=== PATIENT | female | born 1980 | race Caucasian/White ===

== ENCOUNTER 2024-01-30 16:00 | Inpatient (IN) | payer OTHER, SELFPAY ==
[2024-01-30] VITALS (9 sets, daily range): BP systolic 72–121; BP diastolic 48–72; PULSE 95–134; RESP 12–20; TEMP 36.6–37; O2SAT 98–99; BMI 29.5
--- NOTE | ~2024-01-30 | CT_ITS ---
EXAMINATION: CT ABDOMEN AND PELVIS WITHOUT CONTRAST CLINICAL INFORMATION: Sepsis. Abnormal UA. Left CVA tenderness. COMPARISON: None available. TECHNIQUE: Multidetector volumetric imaging was performed from the superior aspect of the liver through the pubic symphysis. Sagittal and coronal reformatted images were obtained on the technologist's workstation. This CT examination was performed using dose optimization techniques as appropriate, variously including the following: *Automated exposure control *Adjustment of mA and/or kV according to patient size (this includes techniques or standardized protocols for targeted exams where dose is matched to indication/reason for exam; i.e. extremities or head) *Use of iterative reconstruction technique DLP: 588 mGy-cm FINDINGS: LUNG BASES: The lung bases appear clear, with no evidence of inflammation or nodules. LIVER, GALLBLADDER, AND BILIARY TREE: The liver measures 18.8 cm in sagittal dimension. It appears unremarkable in shape and attenuation. No focal hepatic lesion or biliary ductal dilatation is appreciated. Status post cholecystectomy. PANCREAS: Unremarkable SPLEEN: Measures 16.7 cm in sagittal dimension. No focal splenic lesion identified. ADRENAL GLANDS: Unremarkable KIDNEYS AND URETERS: Right kidney not visualized, suggesting prior surgical removal. Question mild left perinephric stranding. The left kidney otherwise appears unremarkable in size, shape, and attenuation. No hydronephrosis, hydroureter, or calculi seen. BLADDER: Poorly distended, therefore suboptimally evaluated. Grossly unremarkable. GASTROINTESTINAL TRACT: Evidence of sleeve gastrectomy. The small and large bowel appear unremarkable. ABDOMINAL WALL: No significant hernia is appreciated. LYMPH NODES: No evidence of adenopathy by size criteria. VASCULAR: Unremarkable PELVIC VISCERA: Unremarkable OSSEOUS STRUCTURES: Unremarkable CT/CT abdomen pelvis wo IV con IMPRESSION: Status post right nephrectomy. Question mild left perinephric stranding, nonspecific. Noncontrast CT scan is insensitive and nonspecific for the detection of pyelonephritis. Recommend clinical correlation. Splenomegaly. Borderline mild hepatomegaly. Additional findings, as above. Electronically signed by: Rafa Maher MD 01/30/2024 08:46 PM EST
--- NOTE | ~2024-01-30 | XR_ITS ---
EXAMINATION: XR CHEST CLINICAL INFORMATION: cough, sob COMPARISON: None available. TECHNIQUE: 2 views of the chest were obtained. FINDINGS: No significant abnormality is noted involving the heart, lungs, mediastinum, bony thorax or soft tissues. XR/XR chest 2V IMPRESSION: Unremarkable examination. Electronically signed by: Saman Patel MD 01/30/2024 04:47 PM [facility]
--- NOTE | ~2024-01-30 | US_ITS ---
EXAMINATION: US ABDOMEN LIMITED CLINICAL INFORMATION: Right upper quadrant elevated LFTs. COMPARISON: CT abdomen and pelvis on 01/30/2024 TECHNIQUE: Real-time imaging of the right upper quadrant abdominal viscera. FINDINGS: PANCREAS: Visualized portions are unremarkable. LIVER: The liver is normal in size. The liver contour is normal. Parenchymal echogenicity is normal. No focal hepatic lesion. There is no intrahepatic biliary duct dilatation seen. GALLBLADDER: Surgically absent. COMMON BILE DUCT: Normal in caliber measuring 0.7 cm in diameter. RIGHT KIDNEY: Surgically absent. FREE FLUID: None. US/US abdomen limited IMPRESSION: Unremarkable right upper quadrant ultrasound. Electronically signed by: Kelly Sam MD 01/31/2024 09:33 AM EST
--- NOTE | 2024-01-30 16:08 | ECG_ITS ---
Test Reason : tachy Blood Pressure : / mmHG Vent. Rate : 131 BPM Atrial Rate : 131 BPM P-R Int : 114 ms QRS Dur : 078 ms QT Int : 290 ms P-R-T Axes : 018 -05 019 degrees QTc Int : 428 ms Sinus tachycardia Otherwise normal ECG No previous ECGs available Referred By: Generic ED Physician Electronically Signed By:Danny Pham
--- NOTE | 2024-01-30 16:18 | ED_ITS ---
HPI - Nausea/Vomiting/Diarrhea General Chief complaint: Nausea/Vomiting/Diarrhea Stated complaint: fever,vomiting,body aches Time Seen by Provider: 01/30/24 18:23 History of Present Illness ED Provider: Saundra CERVANTES Narrative: The patient is a 43-year-old woman with a history of renal cell carcinoma and a right nephrectomy. She has received most of her recent care through [facility] and [facility]. She says that she has not felt very well for the last 4 or 5 days. She has had body aches and chills. She has had some left-sided flank or abdominal pain. She spoke to her doctor about these symptoms a couple of days ago and was told she probably had a viral syndrome. However symptoms have worsened over the last couple of days. She has had nausea and vomiting and left-sided flank pain. No definite urinary discomfort. She has had a bit of a cough. Possibly some mild shortness of breath. Related Data Allergies Allergy/AdvReac Type Severity Reaction Status Date / Time erythromycin base Allergy Unknown HIVES Verified 01/30/24 16:06 [ERYTHROMYCIN BASE] metronidazole [From FLAGYL] Allergy Unknown ANAPHYLAXIS Verified 01/30/24 16:06 ofloxacin [From FLOXIN] Allergy Unknown ANAPHYLAXIS Verified 01/30/24 16:06 Penicillins [PENICILLINS] Allergy Unknown HIVES Verified 01/30/24 16:06 vancomycin [VANCOMYCIN] Allergy Unknown HIVES Verified 01/30/24 16:06 Iodinated Contrast Media Allergy Hives Verified 01/30/24 16:06 [Contrast Dye] morphine Allergy Vomiting Verified 01/30/24 16:06 Review of Systems 2 Review of Systems: Yes all other systems are reviewed and are negative [facility], [facility] Past Medical History Medical History (Updated 01/30/24 @ 23:13 by Lenora Hernández PA-C) Renal cell carcinoma of right kidney Urticaria Hypothyroid Diabetes type 2, controlled Surgical History (Updated 01/30/24 @ 23:17 by Lenora Hernández PA-C) History of cholecystectomy H/O gastric sleeve H/O right nephrectomy Social History Social History Smoked in Last 30 Days: No Use of substances other than those prescribed or required for medical reasons: No Advance Directives: No Advance Directives Information Provided: No Do you have a plan to hurt others: No Plan Patient : No Physical Exam 2 Vital Signs: Vital Signs: Last Vital Signs Temp 98.2 F 01/30/24 21:43 Pulse 98 01/30/24 23:27 Resp 20 01/30/24 23:39 BP 108/59 L 01/30/24 23:27 Pulse Ox 98 01/30/24 21:43 O2 Del Method Room Air 01/30/24 21:43 BMI result Body Mass Index 29.5 Const: Other: The patient is a 43-year-old woman who was awake and alert. She looked somewhat unwell. She did not seem in any respiratory difficulty. She did not appear obviously uncomfortable. HEENT: Other: Face is symmetrical. Mucous membranes moist. Eyes: Other: Pupils are round equal, conjunctivae clear Neck: Neck: Yes full ROM, Yes no lymphadenopathy and Yes no JVD Resp: Effort & Inspection: normal respiratory effort Auscultation: clear to auscultation bilaterally Cardio: Rate: tachycardic Rhythm: regular rhythm Heart sounds: S1 normal heart sound present and S2 normal heart sound present GI: Other: There was some mild left-sided abdominal tenderness. No right-sided tenderness. Back/Spine/Pelvis: Other: Some mild left-sided CVA percussion tenderness. Skin: Other: Skin is pale and dry Neuro: Other: The patient is awake and alert with a normal mental status. Cranial nerves are intact. She moves her extremities normally and appropriately. Extrem: Other: No calf swelling or tenderness Course Course Course Narrative: This is a rapid medical exam. Deferred additional HPI, ROS, PE to primary provider. 43 yo female with history of DM here with complaints of cough, shortness of breath, vomiting, body aches x several days. Will obtain labs, UA, EKG, CXR, viral testing. MARY Kwon APRN Medications Administered Generic Name Dose Route Start Last Admin Trade Name Freq PRN Reason Stop Dose Admin Hydromorphone HCl 0.5 mg 01/30/24 23:26 01/30/24 23:39 Hydromorphone Hcl 0.5 Mg/0.5 Ml Syringe IVPUSH 0.5 mg Q4H PRN Administration Pain, Moderate(Pain Scale 4-6) Protocol Lactated Ringer's 1,000 mls @ 125 mls/hr 01/30/24 22:45 01/30/24 23:41 Lr IVCONT 125 mls/hr .Q8H NASREEN Administration Pantoprazole Sodium 40 mg 01/30/24 22:45 01/30/24 23:39 Pantoprazole Sodium 40 Mg/10 Ml Vial IVPUSH 40 mg BID@0630,1630 NASREEN Administration Sodium Chloride 3 ml 01/31/24 00:00 01/31/24 00:39 0.9 % Sodium Chloride Flush 3 Ml Syringe IVFLUSH Not Given QSHIFT NASREEN Discontinued Medications Generic Name Dose Route Start Last Admin Trade Name Frecatrachita PRN Reason Stop Dose Admin Sodium Chloride 1,000 mls @ 999 mls/hr 01/30/24 16:47 01/30/24 20:36 Ns IV 01/30/24 17:47 Infused .Q1H1M STA Infusion Cefepime HCl 2 gm in 50 mls @ 100 mls/hr 01/30/24 18:38 01/30/24 19:22 Maxipime IV 01/30/24 19:07 Infused ONCE ONE Infusion Sodium Chloride 2,340.54 mls @ 2,340.54 mls/hr 01/30/24 18:40 01/30/24 23:00 Ns 30 ml/kg infuse over 1 hr (2340.54 ml) 01/30/24 19:39 Infused IV Infusion .Q1H STA Ondansetron HCl 4 mg 01/30/24 16:47 01/30/24 16:58 Ondansetron Hcl 4 Mg/2 Ml Vial IVPUSH 01/30/24 16:48 4 mg ONCE ONE Administration Medical Decision Making Medical Decision Making [facility] Narrative: The patient is a 43-year-old woman with a history of a right nephrectomy because of renal cell carcinoma. She has not had any recent cancer treatments. She undergoes screening but has had no recurrence of the cancer so far. She presents with a 4 or 5 days of illness that began with body aches in his sense of fever. She has also had a cough and nausea and vomiting. On exam she has some left-sided CVA percussion tenderness. The patient had a lactate that was elevated at 2.8. She does not have a fever but she was quite tachycardic and somewhat hypotensive. She looks somewhat unwell. There were no signs of any respiratory distress. The patient was given aggressive IV fluids and empiric cefepime. She is allergic to vancomycin. My initial impression was that she was possibly septic. The patient has a white count is normal but she has a left shift. Her urinalysis shows positive nitrates, positive leukocyte esterase and bacteria although not many white cells. She has some left-sided CVA percussion tenderness. Chest x-ray was negative for pneumonia. The patient seemed to feel remarkably better and look remarkably better after IV fluids and ondansetron. The patient has tachycardia resolved and her blood pressure improved. Blood testing showed an acute kidney injury with a creatinine of 2.6 and a BUN of 39. Estimated GFR 20. She had a carbon dioxide of 16 on her metabolic panel. She had abnormal LFTs which I suspect may represent hypoperfusion. Noncontrast CT scan of the abdomen was pelvis was done to address her left-sided pain and left-sided CVA percussion tenderness. There is questionable finding of perinephric stranding of the left kidney which is nonspecific but can be seen in pyelonephritis. Repeat lactate was 1.8. Patient was feeling considerably better. She will be admitted to the hospitalist service with a presumptive diagnosis of pyelonephritis. The patient had excellent oxygen saturations on room air. At no point did she seem in respiratory distress or tachypneic. Lab Data 01/30/24 16:22 01/30/24 16:22 Labs: Lab Results 01/30/24 01/30/24 01/30/24 Range/Units 16:22 17:05 17:30 WBC 6.2 (4.8-10.8) X10*3/uL RBC 4.06 L (4.20-5.50) X10*6/uL Hgb 12.3 (12.0-16.0) g/dl Hct 32.8 L (37.0-47.0) % MCV 80.8 (80.0-98.0) fL MCH 30.3 (27.0-33.0) pg MCHC 37.5 H (31.0-35.0) g/dl RDW 12.3 (11.0-16.0) % Plt Count 71 L (160-400) X10*3/uL MPV 11.1 (9.4-12.3) fL Immature Gran % (Auto) 0.6 H (0.0-0.4) % Neut % (Auto) 89.4 H (45-73) % Lymph % (Auto) 6.3 L (20-40) % Towns % (Auto) 3.2 (2-11) % Eos % (Auto) 0.2 (0-4) % Baso % (Auto) 0.3 (0-2) % Lymph # (Auto) 0.4 L (1.2-4.9) X10*3/uL Towns # (Auto) 0.2 (0.1-1.2) X10*3/uL Eos # (Auto) 0.0 (0.0-0.4) X10*3/uL Baso # (Auto) 0.0 (0.0-0.2) X10*3/uL Abs Immat Gran (auto) 0.04 H (0.00-0.03) X10*3/uL Absolute Neuts (auto) 5.5 (2.0-8.3) x10*3/uL Absolute Nucleated RBC 0.000 (0.0-0.012) X10*3/uL Nucleated RBC % (auto) 0.0 (0.0-0.2) /100WBC Sodium 133 L (135-145) mmol/L Potassium 3.6 (3.3-5.1) mmol/L Chloride 104 (96-108) mmol/L Carbon Dioxide 16 L (22-29) mmol/L Anion Gap 17 (12-20) BUN 39 H (9-16) mg/dL Creatinine 2.60 H (0.5-1.4) mg/dL Estim Creat Clear Calc 27.9 Estimated GFR 20 POC Glucose 204 H (60-115) mg/dL Random Glucose 232 H (60-115) mg/dL Lactic Acid (0.5-2.0) mmol/L Lactic Acid F/U @ 2Hr (0.5-2.0) mmol/L Calcium 8.8 (8.4-10.2) mg/dL Total Bilirubin 2.7 H (0.0-1.0) mg/dL Direct Bilirubin 1.5 H (0.0-0.5) mg/dL AST 44 H (5-31) U/L ALT 35 H (0-31) U/L Alkaline Phosphatase 188 H (39-117) U/L Total Protein 6.7 (6.5-8.0) g/dL Albumin 3.3 L (3.5-5.0) g/dL Lipase 16 (8-78) U/L Urine Color Dark Yellow Urine Appearance Cloudy Urine pH 5.5 (5.0-9.0) Ur Specific [place] 1.020 (1.005-1.025) Urine Protein 100 (2+) H (Neg-Trace) mg/dL Urine Glucose (UA) Negative (Negative) mg/dL Urine Ketones Trace (Negative) mg/dL Urine Blood Large (3+) H (Negative) Urine Nitrite Positive H (Negative) Ur Leukocyte Esterase Moderate (2+) H (Negative) Urine RBC 0-2 (0-2) /HPF Urine WBC 11-20 (0-5) /HPF Ur Squamous Epith Cells 11-20 (0-2) /HPF Urine Bacteria 4+ (None Seen) Hyaline Casts 6-10 (0-2) /LPF Urine Test NEGATIVE (NEGATIVE) Influenza Type A (PCR) NEGATIVE (Negative) Influenza Type B (PCR) NEGATIVE (Negative) RSV RNA Qual (PCR) NEGATIVE (Negative) SARS-CoV-2 RNA (RT-PCR) NEGATIVE (Negative) 01/30/24 01/30/24 Range/Units 17:35 20:24 WBC (4.8-10.8) X10*3/uL RBC (4.20-5.50) X10*6/uL Hgb (12.0-16.0) g/dl Hct (37.0-47.0) % MCV (80.0-98.0) fL MCH (27.0-33.0) pg MCHC (31.0-35.0) g/dl RDW (11.0-16.0) % Plt Count (160-400) X10*3/uL MPV (9.4-12.3) fL Immature Gran % (Auto) (0.0-0.4) % Neut % (Auto) (45-73) % Lymph % (Auto) (20-40) % Towns % (Auto) (2-11) % Eos % (Auto) (0-4) % Baso % (Auto) (0-2) % Lymph # (Auto) (1.2-4.9) X10*3/uL Towns # (Auto) (0.1-1.2) X10*3/uL Eos # (Auto) (0.0-0.4) X10*3/uL Baso # (Auto) (0.0-0.2) X10*3/uL Abs Immat Gran (auto) (0.00-0.03) X10*3/uL Absolute Neuts (auto) (2.0-8.3) x10*3/uL Absolute Nucleated RBC (0.0-0.012) X10*3/uL Nucleated RBC % (auto) (0.0-0.2) /100WBC Sodium (135-145) mmol/L Potassium (3.3-5.1) mmol/L Chloride (96-108) mmol/L Carbon Dioxide (22-29) mmol/L Anion Gap (12-20) BUN (9-16) mg/dL Creatinine (0.5-1.4) mg/dL Estim Creat Clear Calc Estimated GFR POC Glucose (60-115) mg/dL Random Glucose (60-115) mg/dL Lactic Acid 2.8 H* (0.5-2.0) mmol/L Lactic Acid F/U @ 2Hr 1.8 (0.5-2.0) mmol/L Calcium (8.4-10.2) mg/dL Total Bilirubin (0.0-1.0) mg/dL Direct Bilirubin (0.0-0.5) mg/dL AST (5-31) U/L ALT (0-31) U/L Alkaline Phosphatase (39-117) U/L Total Protein (6.5-8.0) g/dL Albumin (3.5-5.0) g/dL Lipase (8-78) U/L Urine Color Urine Appearance Urine pH (5.0-9.0) Ur Specific [place] (1.005-1.025) Urine Protein (Neg-Trace) mg/dL Urine Glucose (UA) (Negative) mg/dL Urine Ketones (Negative) mg/dL Urine Blood (Negative) Urine Nitrite (Negative) Ur Leukocyte Esterase (Negative) Urine RBC (0-2) /HPF Urine WBC (0-5) /HPF Ur Squamous Epith Cells (0-2) /HPF Urine Bacteria (None Seen) Hyaline Casts (0-2) /LPF Urine Test (NEGATIVE) Influenza Type A (PCR) (Negative) Influenza Type B (PCR) (Negative) RSV RNA Qual (PCR) (Negative) SARS-CoV-2 RNA (RT-PCR) (Negative) Critical Care Time Critical Care Time Critical Care Time: Yes Total Critical Care Time: 35 Attestation: The patient was critically ill with a high probability of imminent or life- threatening deterioration. ?I spent greater than 30 minutes of discontinuous time evaluating the patient, delivering critical care at the bedside, discussing evaluating data with consultants. ?Critical care time does not include time spent performing separately billable procedures or teaching. ?Time spent performing critical care with 35 minutes. Discharge Plan Discharge Clinical Impression: Pyelonephritis of left kidney, Acute kidney injury Patient Disposition: Admitted As Inpatient
[2024-01-30 16:26] LABS: MANUAL DIFF FLAG NO
[2024-01-30 16:36] LABS: Basophils Percent Auto 0.3 % (0-2); Eosinophils Percent Auto 0.2 % (0-4); Hematocrit 32.8 % (37.0-47.0); Hemoglobin 12.3 g/dl (12.0-16.0); Imm Gran Abs Auto 0.04 X10*3/uL (0.00-0.03); Imm Gran Pct Auto 0.6 % (0.0-0.4); Lymphocytes Absolute Auto 0.4 X10*3/uL (1.2-4.9); Lymphocytes Percent Auto 6.3 % (20-40); Mean Corpuscular HGB Conc 37.5 g/dl (31.0-35.0); Mean Corpuscular Hemoglobin 30.3 pg (27.0-33.0); Mean Corpuscular Volume 80.8 fL (80.0-98.0); Monocytes Absolute Auto 0.2 X10*3/uL (0.1-1.2); Monocytes Percent Auto 3.2 % (2-11); Neutrophils Absolute Auto 5.5 x10*3/uL (2.0-8.3); Neutrophils Percent Auto 89.4 % (45-73); Red Blood Count 4.06 X10*6/uL (4.20-5.50); Red Cell Distribution Width 12.3 % (11.0-16.0); White Blood Count 6.2 X10*3/uL (4.8-10.8)
[2024-01-30 16:51] LABS: Albumin Level 3.3 g/dL (3.5-5.0); Anion Gap 17 (12-20); Aspartate Amino Transferase 44 U/L (5-31); Bilirubin Direct 1.5 mg/dL (0.0-0.5); Bilirubin Total 2.7 mg/dL (0.0-1.0); Blood Urea Nitrogen 39 mg/dL (9-16); Calcium 8.8 mg/dL (8.4-10.2); Carbon Dioxide 16 mmol/L (22-29); Chloride 104 mmol/L (96-108); Creatinine Clr Calc Pharmacy 27.9; Estimated Glomerular Filt Rate 20; Glucose Random 232 mg/dL (60-115); Lipase 16 U/L (8-78); Potassium 3.6 mmol/L (3.3-5.1); Sodium 133 mmol/L (135-145); Total Protein 6.7 g/dL (6.5-8.0)
[2024-01-30 16:55] LABS: Mean Platelet Volume 11.1 fL (9.4-12.3); Platelet Count 71 X10*3/uL (160-400)
[2024-01-30] MEDS: ondansetron HCL 4 MG/2 ML VIAL IVPUSH (16:58)
[2024-01-30] MEDS: 0.9 % Sodium Chloride 1,000 ML 999 ML IV (16:59)
[2024-01-30 17:06] LABS: Alanine Aminotransferase 35 U/L (0-31); Alkaline Phosphatase 188 U/L (39-117)
[2024-01-30 17:07] LABS: Influenza A PCR NEGATIVE (Negative); Influenza B PCR NEGATIVE (Negative); Resp Syncy Virus RNA Qual PCR NEGATIVE (Negative); SARS COV2 PCR INHOUSE NEGATIVE (Negative)
[2024-01-30 17:10] LABS: Glucose, Whole Blood 204 mg/dL (60-115)
[2024-01-30 17:48] LABS: Appearance Urine Cloudy; Color Urine Dark Yellow; Glucose Urine UA Negative (Negative); Leukocyte Esterase Urine Moderate (2+) (Negative); Nitrite Urine Positive (Negative); PH 5.5 (5.0-9.0); UMIC TRIGGER UACC YES; Urine Blood Large (3+) (Negative); Urine Ketones Trace mg/dL (Negative); Urine Protein 100 (2+) mg/dL (Neg-Trace)
[2024-01-30 17:50] LABS: UPreg QC Valid YES; Urine Pregnancy NEGATIVE (NEGATIVE)
[2024-01-30 18:00] LABS: Bacteria Urine 4+ (None Seen); RBC Urine 0-2 /HPF (0-2); UACC Culture Trigger YES
--- NOTE | 2024-01-30 18:03 | PC.NURSE ---
right IV site infiltrated after 20 minutes of infusing IV fluid, arm above the site is painful and swollen, ice applied.
[2024-01-30 18:14] LABS: Lactic Acid 2.8 mmol/L (0.5-2.0)
[2024-01-30] MEDS: cefEPime HCl/D5W 2 GM/50 ML PIGGYBACK IV (18:51)
[2024-01-30] MEDS: SODIUM CHLORIDE 2340.54 ML IV (19:16)
--- NOTE | 2024-01-30 19:17 | PC.NURSE ---
this RN assumed care of pt, pt a&ox4, respirations even and unlabored. Sepsis alert called on pt per provider, pt noted to be sinuc tach 15-117bpm. pt denies pain. IV sepsis fluids administered per apr. vss.
[2024-01-30 19:44] LABS: Reflex Lactate? Lactic Acid Added
--- NOTE | 2024-01-30 19:45 | PC.NURSE ---
pt was asking about prev labs values. Pt pulled the following up from her phone. CR 1.1 BUN 15 B/C ratio 13.6 all reported on 01/13/24. provider Gamaliel made aware.
--- NOTE | 2024-01-30 20:35 | PC.NURSE ---
pt reports her nausea has decreased at this time, per provider pt okayed to have sandwich. Iv fluids continuing to administer.
[2024-01-30 20:42] LABS: ~Lactic Acid-LAB USE ONLY 1.8 mmol/L (0.5-2.0)
--- NOTE | 2024-01-30 22:54 | P.HPHOSP_ITS ---
History of Present Illness Date of Service: 01/30/24 Attending physician on admission: Chary Sawyer Chief Complaint: L flank pain Patient is a 43-year-old female with a past medical history significant for renal cell carcinoma status post right nephrectomy, type 2 diabetes, hypothyroid and chronic urticaria, who presented to the ED with 5 days of chills, aches, left flank pain, nausea and vomiting. She denies any dysuria, urinary frequency or urinary symptoms. She reports a possible temp of 95 degrees at home, normal here. She also complains of a cough with shortness of breath. No nasal congestion or sore throat. 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 She has been taking ibuprofen 800 mg for her flank pain. No hematemesis or hematuria. Review of Systems 2 Constitutional: Constitutional: Reports chills, Denies fatigue and Denies headache(s) Eyes: Eyes: Denies change in vision ENT: Denies headache(s), Denies nasal congestion, Denies nasal discharge and Denies sore throat Cardiovascular: Cardiovascular: Denies chest pain, Denies syncope, Denies rapid heart rate, Denies leg edema and Reports dyspnea Respiratory: Respiratory: Reports cough, Reports dyspnea and Denies wheezing Gastrointestinal: Gastrointestinal: Denies constipation, Denies diarrhea, Reports nausea and Reports vomiting Genitourinary: Genitourinary: Reports as per HPI Musculoskeletal: Musculoskeletal: Denies numbness and Denies tingling Integumentary/Breasts: Skin/Breast: Denies rash Neurologic: Denies confusion, Denies syncope, Denies headache(s), Denies numbness and Denies tingling Psychiatric: Psychiatric: Denies confusion Endocrine: Endocrine: Denies fatigue Hematologic/Lymphatic: Hematologic/Lymphatic: Denies easy bleeding and Denies easy bruising Allergic/Immunologic: Allergic/Immunologic: Denies wheezing [facility] Medical History (Updated 01/30/24 @ 23:13 by Lenora Hernández PA-C) Renal cell carcinoma of right kidney Urticaria Hypothyroid Diabetes type 2, controlled Functional capacity: independent ambulation Surgical History (Updated 01/30/24 @ 23:17 by Lenora Hernández PA-C) History of cholecystectomy H/O gastric sleeve H/O right nephrectomy Social History Smoked in Last 30 Days: No Use of substances other than those prescribed or required for medical reasons: No Advance Directives: No Advance Directives Information Provided: No Do you have a plan to hurt others: No Plan Patient : No Narrative: social etoh, no drug use, former smoker. Meds Allergies Allergy/AdvReac Type Severity Reaction Status Date / Time erythromycin base Allergy Unknown HIVES Verified 01/30/24 16:06 [ERYTHROMYCIN BASE] metronidazole [From FLAGYL] Allergy Unknown ANAPHYLAXIS Verified 01/30/24 16:06 ofloxacin [From FLOXIN] Allergy Unknown ANAPHYLAXIS Verified 01/30/24 16:06 Penicillins [PENICILLINS] Allergy Unknown HIVES Verified 01/30/24 16:06 vancomycin [VANCOMYCIN] Allergy Unknown HIVES Verified 01/30/24 16:06 Iodinated Contrast Media Allergy Hives Verified 01/30/24 16:06 [Contrast Dye] morphine Allergy Vomiting Verified 01/30/24 16:06 Active Medications: Current Medications Acetaminophen (Acetaminophen 325 Mg Tablet) 650 mg PO Q6H PRN PRN Reason: Pain, Mild (Pain Scale 1-3), fever or headache Calcium Carbonate (Calcium Carbonate 750 Mg Tab.Chew) 750 mg PO Q4H PRN PRN Reason: Heartburn Glucose (Glucose Gel 15 Gm Gel..Gram.) 15 gm PO Q15M PRN; Protocol PRN Reason: per Hypoglycemia Standing Ord. Lactated Ringer's (Lr) 1,000 mls @ 125 mls/hr IVCONT .Q8H [facility] Dextrose (D10) 250 mls @ 750 mls/hr IV Q15M PRN; Protocol PRN Reason: per Hypoglycemia Standing Ord. Cefepime HCl (Maxipime) 2 gm in 50 mls @ 100 mls/hr IV Q24H [facility] Insulin Human Lispro (Insulin Lispro 100 Unit/Ml 3 Ml Vial) 0 unit SUBCUT QIDACHS [facility]; Protocol Magnesium Hydroxide (Milk Of Magnesia 30 Ml Oral.Susp) 30 ml PO DAILY PRN PRN Reason: Constipation Melatonin (Melatonin 3 Mg Tablet) 6 mg PO BEDTIME PRN PRN Reason: Insomnia Ondansetron HCl (Ondansetron Hcl 4 Mg/2 Ml Vial) 4 mg IVPUSH Q8H PRN PRN Reason: Nausea and Vomiting Pantoprazole Sodium (Pantoprazole Sodium 40 Mg/10 Ml Vial) 40 mg IVPUSH BID@0630,1630 [facility] Sodium Chloride (0.9 % Sodium Chloride Flush 3 Ml Syringe) 3 ml IVFLUSH QSHIFT [facility] Physical Exam 2 Vital Signs and Narrative: Vital Signs: Last Vital Signs Temp 98.1 F 01/30/24 20:48 Pulse 102 H 01/30/24 20:48 Resp 15 01/30/24 20:48 BP 113/69 01/30/24 20:48 Pulse Ox 99 01/30/24 20:48 O2 Del Method Room Air 01/30/24 20:48 BMI result Body Mass Index 29.5 General: AOx3, no acute distress Resp: CTA bilaterally CVS: S1, S2, RRR GI: +BS, NT, no distention, L CVA tenderness Skin: Warm, dry Extremities: No LE edema Psych: Appropriate affect sepsis focused exam normal Const: General: No confusion Orientation/consciousness: No confusion Neuro: General: No confusion Results Labs 01/30/24 16:22 01/31/24 00:37 Labs: Laboratory Results - last 24 hr 01/30/24 01/30/24 01/30/24 16:22 17:05 17:30 MCV 80.8 MCH 30.3 MCHC 37.5 H RDW 12.3 Plt Count 71 L MPV 11.1 Immature Gran % (Auto) 0.6 H Neut % (Auto) 89.4 H Lymph % (Auto) 6.3 L [place] % (Auto) 3.2 Eos % (Auto) 0.2 Baso % (Auto) 0.3 Lymph # (Auto) 0.4 L [place] # (Auto) 0.2 Eos # (Auto) 0.0 Baso # (Auto) 0.0 Abs Immat Gran (auto) 0.04 H Absolute Neuts (auto) 5.5 Absolute Nucleated RBC 0.000 Nucleated RBC % (auto) 0.0 Anion Gap 17 Estim Creat Clear Calc 27.9 Estimated GFR 20 POC Glucose 204 H Random Glucose 232 H Lactic Acid Lactic Acid F/U @ 2Hr Calcium 8.8 Total Bilirubin 2.7 H Direct Bilirubin 1.5 H AST 44 H ALT 35 H Alkaline Phosphatase 188 H Total Protein 6.7 Albumin 3.3 L Lipase 16 Urine Color Dark Yellow Urine Appearance Cloudy Urine pH 5.5 Ur Specific [place] 1.020 Urine Protein 100 (2+) H Urine Glucose (UA) Negative Urine Ketones Trace Urine Blood Large (3+) H Urine Nitrite Positive H Ur Leukocyte Esterase Moderate (2+) H Urine RBC 0-2 Urine WBC 11-20 Ur Squamous Epith Cells 11-20 Urine Bacteria 4+ Hyaline Casts 6-10 Urine Test NEGATIVE Influenza Type A (PCR) NEGATIVE Influenza Type B (PCR) NEGATIVE RSV RNA Qual (PCR) NEGATIVE SARS-CoV-2 RNA (RT-PCR) NEGATIVE 01/30/24 01/30/24 17:35 20:24 MCV MCH MCHC RDW Plt Count MPV Immature Gran % (Auto) Neut % (Auto) Lymph % (Auto) [place] % (Auto) Eos % (Auto) Baso % (Auto) Lymph # (Auto) [place] # (Auto) Eos # (Auto) Baso # (Auto) Abs Immat Gran (auto) Absolute Neuts (auto) Absolute Nucleated RBC Nucleated RBC % (auto) Anion Gap Estim Creat Clear Calc Estimated GFR POC Glucose Random Glucose Lactic Acid 2.8 H* Lactic Acid F/U @ 2Hr 1.8 Calcium Total Bilirubin Direct Bilirubin AST ALT Alkaline Phosphatase Total Protein Albumin Lipase Urine Color Urine Appearance Urine pH Ur Specific [place] Urine Protein Urine Glucose (UA) Urine Ketones Urine Blood Urine Nitrite Ur Leukocyte Esterase Urine RBC Urine WBC Ur Squamous Epith Cells Urine Bacteria Hyaline Casts Urine Test Influenza Type A (PCR) Influenza Type B (PCR) RSV RNA Qual (PCR) SARS-CoV-2 RNA (RT-PCR) Imaging Radiologist's Impressions: Impressions Chest X-Ray 01/30/24 16:30 IMPRESSION: Unremarkable examination. Electronically signed by: Saman Patel MD 01/30/2024 04:47 PM EST RP Abdomen/Pelvis CT 01/30/24 19:25 IMPRESSION: Status post right nephrectomy. Question mild left perinephric stranding, nonspecific. Noncontrast CT scan is insensitive and nonspecific for the detection of pyelonephritis. Recommend clinical correlation. Splenomegaly. Borderline mild hepatomegaly. Additional findings, as above. Electronically signed by: Rafa Maher MD 01/30/2024 08:46 PM EST RP Assessment and Plan (1) Sepsis: Status: Acute (2) Pyelonephritis of left kidney: Status: Acute (3) Acute kidney injury: Status: Acute (4) Elevated LFTs: Status: Acute (5) Thrombocytopenia: Status: Acute Plan Patient is a 43-year-old female with a past medical history significant for renal cell carcinoma status post right nephrectomy, type 2 diabetes, hypothyroid and chronic urticaria, who presented to the ED with 5 days of chills, aches, left flank pain, nausea and vomiting. sepsis secondary to pyelonephritis - +bands, no leukocytosis, hypotensive and tachy, lactate normal, blood cultures pending - given sepsis fluid blous in ED, continue LR 125ml/hr - UA +, culture pending - CXR negative - Abd/pelvic CT with perinephric stranding left kidney - started on cefepime in ED, tolerated although PCN allergy, will continue renally dosed and confirmed with pharmacist - start pantoprazole BID to prevent stress ulcer - due to allergies and kidney function hydromorphone added PRN for moderate and severe pain - recheck CMP now - monitor CBC and CMP MERLY -- likely multifactorial with solitary kidney, sepsis, NSAID use, vomiting - creatinine 2.6, baseline 1.1 last month per patient portal @[facility] on her phone - given fluid bolus in ED - LR 125ml/hr - avoid nephrotoxins - counseled pt to avoid ibuprofen - monitor CMP elevated LFTs -- likely due to sepsis - RUQ US - hold mounjaro - monitor CMP thrombocytopenia -- likely due to sepsis - monitor CBC T2DM - SSI - diabetic diet - hold mounjaro hypothyroid - continue levothyroxine chronic urticaria - continue levocetirazine full code VTE prophy: pneumoboots, meds contraindicated due to thrombocytopenia Patient with sepsis secondary to pyelonephritis requiring admission for at least 2 midnights stay for IV antibiotics and monitoring. Quality Stroke Does the patient have a stroke diagnosis?: No VTE Prior VTE?: No VTE Risk Level:: Medical - moderate - high VTE Device Contraindication: N/A - Device Ordered VTE Drug Contraindication: Treatment Not Indicated
[2024-01-30] MEDS: HYDROmorphone HCl 0.5 MG/0.5 ML SYRINGE IVPUSH (23:39)
[2024-01-30] MEDS: Pantoprazole Sodium 40 MG/10 ML VIAL IVPUSH (23:39)
[2024-01-30] MEDS: Lactated Ringers 1,000 ML 125 ML IVCONT (23:41)
--- NOTE | 2024-01-30 23:46 | PC.NURSE ---
pt reporting 6/10 lower back pain, pt medicated per mar. pt to ultrasound at this time.
[2024-01-31] VITALS (8 sets, daily range): BP systolic 88–111; BP diastolic 50–69; PULSE 95–135; RESP 12–20; TEMP 36.5–39; O2SAT 96–98
--- NOTE | 2024-01-31 | ECG_ITS ---
Test Reason : TACHYCARDIA Blood Pressure : / mmHG Vent. Rate : 136 BPM Atrial Rate : 136 BPM P-R Int : 128 ms QRS Dur : 078 ms QT Int : 288 ms P-R-T Axes : 025 015 006 degrees QTc Int : 433 ms Sinus tachycardia Nonspecific T wave abnormality Abnormal ECG When compared with ECG of 30-JAN-2024 16:08, Nonspecific T wave abnormality now evident in Anterolateral leads Referred By: Lenora Hernández Electronically Signed By:Danny Pham
[2024-01-31 01:19] LABS: Alanine Aminotransferase 26 U/L (0-31); Albumin Level 2.9 g/dL (3.5-5.0); Alkaline Phosphatase 190 U/L (39-117); Anion Gap 17 (12-20); Aspartate Amino Transferase 39 U/L (5-31); Bilirubin Total 2.5 mg/dL (0.0-1.0); Blood Urea Nitrogen 36 mg/dL (9-16); Calcium 7.8 mg/dL (8.4-10.2); Carbon Dioxide 16 mmol/L (22-29); Chloride 109 mmol/L (96-108); Creatinine Clr Calc Pharmacy 30.2; Estimated Glomerular Filt Rate 22; Glucose Random 262 mg/dL (60-115); Potassium 4.5 mmol/L (3.3-5.1); Sodium 137 mmol/L (135-145)
[2024-01-31] MEDS: Acetaminophen 325 MG TABLET 975 MG PO (01:58)
--- NOTE | 2024-01-31 02:14 | PC.NURSE ---
pt noted to have fever and tachycardic at this time, 130-135. provider aware. pt medicated per mar with tylenol. pt placed into hospital bed for comfort.
[2024-01-31 05:48] LABS: Hematocrit 24.8 % (37.0-47.0); Mean Corpuscular HGB Conc 36.3 g/dl (31.0-35.0); Mean Corpuscular Volume 82.7 fL (80.0-98.0); Mean Platelet Volume 11.3 fL (9.4-12.3); Red Cell Distribution Width 12.5 % (11.0-16.0); White Blood Count 8.6 X10*3/uL (4.8-10.8)
[2024-01-31] MEDS: Pantoprazole Sodium 40 MG/10 ML VIAL IVPUSH ×2 (05:57→17:14)
[2024-01-31 06:02] LABS: Platelet Count 48 X10*3/uL (160-400)
[2024-01-31 06:15] LABS: Alanine Aminotransferase 37 U/L (0-31); Albumin Level 2.4 g/dL (3.5-5.0); Alkaline Phosphatase 313 U/L (39-117); Anion Gap 12 (12-20); Aspartate Amino Transferase 78 U/L (5-31); Bilirubin Total 2.9 mg/dL (0.0-1.0); Blood Urea Nitrogen 35 mg/dL (9-16); Calcium 7.4 mg/dL (8.4-10.2); Carbon Dioxide 16 mmol/L (22-29); Chloride 108 mmol/L (96-108); Creatinine Clr Calc Pharmacy 29.5; Estimated Glomerular Filt Rate 21; Glucose Random 284 mg/dL (60-115); Potassium 3.1 mmol/L (3.3-5.1); Sodium 133 mmol/L (135-145)
[2024-01-31 06:16] LABS: Band Neutrophils Percent 9 % (3-5); Lymphocytes Absolute Manual 0.2 X10*3/uL (1.2-4.9); Lymphocytes Percent Manual 2 % (20-40); Metamyelocytes Absolute 0.1 X10*3/uL; Metamyelocytes Percent 1 %; Monocytes Absolute Manual 0.7 X10*3/uL (0.1-1.2); Monocytes Percent Manual 8 % (2-11); Neutrophils Absolute Manual 7.7 X10*3/uL (2.0-8.3); Neutrophils Percent Manual 80 % (45-73); RBC Morphology NOTED
[2024-01-31 06:17] LABS: Acanthocytes 2+ (3-5) /OIF; Giant Platelet PRESENT; Large Platelet PRESENT; Ovalocytes 2+ (15-30) /OIF; Platelet Estimate DECREASED (NORMAL); Platelet Morphology Comment NOTED; Schistocytes 1+ (0-2) /OIF
[2024-01-31 06:18] LABS: Burr Cells 2+ (3-5) /OIF; Dohle Bodies PRESENT; Smudge Cells PRESENT; Toxic Granulation PRESENT; Toxic Vacuolation PRESENT
[2024-01-31 07:26] LABS: Glucose, Whole Blood 249 mg/dL (60-115)
[2024-01-31] MEDS: Insulin Lispro 100 UNIT/ML 3 ML VIAL SUBCUT ×4 (07:26→20:58)
[2024-01-31] MEDS: Acetaminophen 1,000 MG/100 ML PIGGYBACK 400 MG IV ×3 (07:26→20:58)
[2024-01-31] MEDS: Lactated Ringers 1,000 ML 125 ML IVCONT ×2 (07:27→17:14)
[2024-01-31] MEDS: ondansetron HCL 4 MG/2 ML VIAL IVPUSH ×2 (07:36→12:19)
--- NOTE | 2024-01-31 07:41 | PC.NURSE ---
insulin administered per sliding scale. medication/new IVF bag hung per provider order. LR infusing @ 100mls/hr. pt given breakfast tray - requesting zofran prior to eating. PRN medication utilized. pt otherwise resting in no apparent distress. on RA w/o difficulty - no sob/wob noted. respirations even/unlabored. waiting for bed assignment. plan of care ongoing. call espinoza placed within reach.
[2024-01-31] MEDS: Potassium Chloride ER 20 MEQ TAB.ER.PRT 40 MEQ PO (09:14)
--- NOTE | 2024-01-31 09:22 | PHA.MEDREC ---
Addendum entered by Shahnaz Astudillo RPh 01/31/24 09:40: REVIEWED Original Note: Pharmacy Consult ? Medication Reconciliation Pharmacy has completed the medication reconciliation. Spoke to patient to confirm med list. Patient was able name the medications she takes. Patient states she is no longer on Tresiba Flextouch 100 units/ML. Patient confirmed Mounjaro 5 mg/0.5mg is every Mondays , last dose was 01/25/24. patient states she takes Levocetirizine 10 QAM and 10 mg QPM , however claims has 5 mg bid. last time she took her medications was 01/28/24.
--- NOTE | 2024-01-31 10:15 | P.PNIM_ITS ---
Subjective Subjective Date of Service: 01/31/24 Review of Systems Follow up Sepsis, pyleo nausea and vomiting Physical Exam 2 Vital Signs: Vital Signs: Last Vital Signs Temp 97.7 F 01/31/24 08:00 Pulse 95 01/31/24 08:00 Resp 14 01/31/24 08:00 BP 92/60 01/31/24 08:00 Pulse Ox 97 01/31/24 08:00 O2 Del Method Room Air 01/31/24 08:00 BMI result Body Mass Index 29.5 Appearing in no acute distress lung sounds are clear to auscultation heart regular rate rhythm, clear S1, S2 positive bowel sounds, abdomen is soft, nontender neuro patient is alert x3, no focal deficits CVA tenderness, left Objective Data Active Medications Acetaminophen (Acetaminophen 325 Mg Tablet) 975 mg PO Q6H PRN PRN Reason: Pain, Mild (Pain Scale 1-3), fever or headache Last Admin: 01/31/24 01:58 Dose: 975 mg Documented By: BRYAN Calcium Carbonate (Calcium Carbonate 750 Mg Tab.Chew) 750 mg PO Q4H PRN PRN Reason: Heartburn Glucose (Glucose Gel 15 Gm Gel..Gram.) 15 gm PO Q15M PRN; Protocol PRN Reason: per Hypoglycemia Standing Ord. Hydromorphone HCl (Hydromorphone Hcl 0.5 Mg/0.5 Ml Syringe) 0.5 mg IVPUSH Q4H PRN; Protocol PRN Reason: Pain, Moderate(Pain Scale 4-6) Last Admin: 01/30/24 23:39 Dose: 0.5 mg Documented By: BRYAN Hydromorphone HCl (Hydromorphone Hcl 1 Mg/Ml Syringe) 1 mg IVPUSH Q4H PRN; Protocol PRN Reason: Pain, Severe (Pain Scale 7-10) Lactated Ringer's (Lr) 1,000 mls @ 125 mls/hr IVCONT .Q8H [facility] Last Admin: 01/31/24 07:27 Dose: 125 mls/hr Documented By: JOS Dextrose (D10) 250 mls @ 750 mls/hr IV Q15M PRN; Protocol PRN Reason: per Hypoglycemia Standing Ord. Cefepime HCl (Maxipime) 2 gm in 50 mls @ 100 mls/hr IV Q24H [facility] Acetaminophen (Ofirmev) 1,000 mg in 100 mls @ 400 mls/hr IV Q6H [facility] Stop: 01/31/24 20:14 Last Infusion: 01/31/24 07:52 Dose: Infused Documented By: JOS Insulin Human Lispro (Insulin Lispro 100 Unit/Ml 3 Ml Vial) 0 unit SUBCUT QIDACHS [facility]; Protocol Last Admin: 01/31/24 07:26 Dose: 4 unit Documented By: JOS Magnesium Hydroxide (Milk Of Magnesia 30 Ml Oral.Susp) 30 ml PO DAILY PRN PRN Reason: Constipation Melatonin (Melatonin 3 Mg Tablet) 6 mg PO BEDTIME PRN PRN Reason: Insomnia Ondansetron HCl (Ondansetron Hcl 4 Mg/2 Ml Vial) 4 mg IVPUSH Q6H PRN PRN Reason: Nausea and Vomiting Last Admin: 01/31/24 07:36 Dose: 4 mg Documented By: JOS Pantoprazole Sodium (Pantoprazole Sodium 40 Mg/10 Ml Vial) 40 mg IVPUSH BID@0630,1630 [facility] Last Admin: 01/31/24 05:57 Dose: 40 mg Documented By: BRYAN Sodium Chloride (0.9 % Sodium Chloride Flush 3 Ml Syringe) 3 ml IVFLUSH QSHIFT [facility] Last Admin: 01/31/24 07:27 Dose: Not Given Documented By: JOS Non-Admin Reason: IV Running Labs 01/31/24 05:30 01/31/24 05:30 Labs: Laboratory Results - last 24 hr 01/30/24 01/30/24 01/30/24 16:22 17:05 17:30 MCV 80.8 MCH 30.3 MCHC 37.5 H RDW 12.3 Plt Count 71 L MPV 11.1 Immature Gran % (Auto) 0.6 H Neut % (Auto) 89.4 H Lymph % (Auto) 6.3 L [place] % (Auto) 3.2 Eos % (Auto) 0.2 Baso % (Auto) 0.3 Lymph # (Auto) 0.4 L [place] # (Auto) 0.2 Eos # (Auto) 0.0 Baso # (Auto) 0.0 Abs Immat Gran (auto) 0.04 H Absolute Neuts (auto) 5.5 Absolute Nucleated RBC 0.000 Nucleated RBC % (auto) 0.0 Neutrophils % (Manual) Band Neutrophils % Lymphocytes % (Manual) Monocytes % (Manual) Metamyelocytes % Abs Neuts (Manual) Lymphocytes # (Manual) Monocytes # (Manual) Metamyelocytes # Smudge Cells Toxic Granulation Toxic Vacuolation Dohle Bodies Platelet Estimate Large Platelets Giant Platelets Plt Morphology Comment RBC Morphology Ovalocytes [place] Cells Acanthocytes (Spur) Schistocytes Anion Gap 17 Estim Creat Clear Calc 27.9 Estimated GFR 20 POC Glucose 204 H Random Glucose 232 H Lactic Acid Lactic Acid F/U @ 2Hr Calcium 8.8 Total Bilirubin 2.7 H Direct Bilirubin 1.5 H AST 44 H ALT 35 H Alkaline Phosphatase 188 H Total Protein 6.7 Albumin 3.3 L Lipase 16 Urine Color Dark Yellow Urine Appearance Cloudy Urine pH 5.5 Ur Specific [place] 1.020 Urine Protein 100 (2+) H Urine Glucose (UA) Negative Urine Ketones Trace Urine Blood Large (3+) H Urine Nitrite Positive H Ur Leukocyte Esterase Moderate (2+) H Urine RBC 0-2 Urine WBC 11-20 Ur Squamous Epith Cells 11-20 Urine Bacteria 4+ Hyaline Casts 6-10 Urine Test NEGATIVE Influenza Type A (PCR) NEGATIVE Influenza Type B (PCR) NEGATIVE RSV RNA Qual (PCR) NEGATIVE SARS-CoV-2 RNA (RT-PCR) NEGATIVE 01/30/24 01/30/24 01/31/24 17:35 20:24 00:37 MCV MCH MCHC RDW Plt Count MPV Immature Gran % (Auto) Neut % (Auto) Lymph % (Auto) [place] % (Auto) Eos % (Auto) Baso % (Auto) Lymph # (Auto) [place] # (Auto) Eos # (Auto) Baso # (Auto) Abs Immat Gran (auto) Absolute Neuts (auto) Absolute Nucleated RBC Nucleated RBC % (auto) Neutrophils % (Manual) Band Neutrophils % Lymphocytes % (Manual) Monocytes % (Manual) Metamyelocytes % Abs Neuts (Manual) Lymphocytes # (Manual) Monocytes # (Manual) Metamyelocytes # Smudge Cells Toxic Granulation Toxic Vacuolation Dohle Bodies Platelet Estimate Large Platelets Giant Platelets Plt Morphology Comment RBC Morphology Ovalocytes [place] Cells Acanthocytes (Spur) Schistocytes Anion Gap 17 Estim Creat Clear Calc 30.2 Estimated GFR 22 POC Glucose Random Glucose 262 H Lactic Acid 2.8 H* Lactic Acid F/U @ 2Hr 1.8 Calcium 7.8 L D Total Bilirubin 2.5 H Direct Bilirubin AST 39 H ALT 26 Alkaline Phosphatase 190 H Total Protein 6.0 L Albumin 2.9 L Lipase Urine Color Urine Appearance Urine pH Ur Specific [place] Urine Protein Urine Glucose (UA) Urine Ketones Urine Blood Urine Nitrite Ur Leukocyte Esterase Urine RBC Urine WBC Ur Squamous Epith Cells Urine Bacteria Hyaline Casts Urine Test Influenza Type A (PCR) Influenza Type B (PCR) RSV RNA Qual (PCR) SARS-CoV-2 RNA (RT-PCR) 01/31/24 01/31/24 05:30 07:20 MCV 82.7 MCH 30.0 MCHC 36.3 H RDW 12.5 Plt Count 48 L D MPV 11.3 Immature Gran % (Auto) Cancelled Neut % (Auto) Cancelled Lymph % (Auto) Cancelled [place] % (Auto) Cancelled Eos % (Auto) Cancelled Baso % (Auto) Cancelled Lymph # (Auto) Cancelled [place] # (Auto) Cancelled Eos # (Auto) Cancelled Baso # (Auto) Cancelled Abs Immat Gran (auto) Cancelled Absolute Neuts (auto) Cancelled Absolute Nucleated RBC 0.000 Nucleated RBC % (auto) 0.0 Neutrophils % (Manual) 80 H Band Neutrophils % 9 H Lymphocytes % (Manual) 2 L Monocytes % (Manual) 8 Metamyelocytes % 1 Abs Neuts (Manual) 7.7 Lymphocytes # (Manual) 0.2 L Monocytes # (Manual) 0.7 Metamyelocytes # 0.1 Smudge Cells PRESENT Toxic Granulation PRESENT Toxic Vacuolation PRESENT Dohle Bodies PRESENT Platelet Estimate DECREASED Large Platelets PRESENT Giant Platelets PRESENT Plt Morphology Comment NOTED RBC Morphology NOTED Ovalocytes 2+ (15-30) [place] Cells 2+ (3-5) Acanthocytes (Spur) 2+ (3-5) Schistocytes 1+ (0-2) Anion Gap 12 Estim Creat Clear Calc 29.5 Estimated GFR 21 POC Glucose 249 H Random Glucose 284 H Lactic Acid Lactic Acid F/U @ 2Hr Calcium 7.4 L Total Bilirubin 2.9 H Direct Bilirubin AST 78 H ALT 37 H Alkaline Phosphatase 313 H Total Protein 5.0 L Albumin 2.4 L Lipase Urine Color Urine Appearance Urine pH Ur Specific [place] Urine Protein Urine Glucose (UA) Urine Ketones Urine Blood Urine Nitrite Ur Leukocyte Esterase Urine RBC Urine WBC Ur Squamous Epith Cells Urine Bacteria Hyaline Casts Urine Test Influenza Type A (PCR) Influenza Type B (PCR) RSV RNA Qual (PCR) SARS-CoV-2 RNA (RT-PCR) Microbiology Microbiology Results: Microbiology 01/30/24 17:39 Blood Culture - Preliminary Blood - Venous Prelim: GNR Gram Stain only 01/30/24 17:35 Blood Culture - Preliminary Blood - Venous Prelim: GNR Gram Stain only Assessment and Plan (1) Pyelonephritis of left kidney: Status: Acute Plan Patient is a 43-year-old female with a past medical history significant for renal cell carcinoma status post right nephrectomy, type 2 diabetes, hypothyroid and chronic urticaria, who presented to the ED with 5 days of chills, aches, left flank pain, nausea and vomiting. GNR bacteremia continue Cefepime follow final cx Sepsis secondary to pyelonephritis with GNR UTI +bands, no leukocytosis, hypotensive and tachy, lactate normal, blood cultures pending continue LR 125ml/hr CXR negative Abd/pelvic CT with perinephric stranding left kidney continue cefepime pantoprazole BID to prevent stress ulcer MERLY likely multifactorial with solitary kidney, sepsis, NSAID use, vomiting creatinine 2.6, baseline 1.1 last month per patient portal @[facility] on her phone LR 125ml/hr avoid nephrotoxins counseled pt to avoid ibuprofen monitor CMP elevated LFTs likely due to sepsis RUQ US hold mounjaro monitor CMP thrombocytopenia likely due to sepsis monitor CBC T2DM SSI diabetic diet hold mounjaro hypothyroid continue levothyroxine chronic urticaria continue levocetirazine full code VTE prophy: pneumoboots, meds contraindicated due to thrombocytopenia Quality Stroke Does the patient have a stroke diagnosis?: No VTE Prior VTE?: No VTE Risk Level:: Medical - moderate - high VTE Device Contraindication: N/A - Device Ordered VTE Drug Contraindication: Treatment Not Indicated
[2024-01-31] MEDS: oxyCODONE HCl Immed Release 5 MG TABLET PO (11:33)
--- NOTE | 2024-01-31 12:11 | PC.NURSE ---
Per pt, daughter Francesca okay to speak with and give information.
[2024-01-31] MEDS: HYDROmorphone HCl 1 MG/ML SYRINGE IVPUSH ×2 (12:13→20:51)
--- NOTE | 2024-01-31 12:13 | MHC.CM.PN ---
pt lives with boyfriend has own ride home and is independent no services indicated
[2024-01-31 13:21] LABS: Glucose, Whole Blood 231 mg/dL (60-115)
[2024-01-31 16:25] LABS: Glucose, Whole Blood 211 mg/dL (60-115)
--- NOTE | 2024-01-31 17:38 | PC.NURSE ---
pts vitals at 1525 BP 88/50 P 106 T 99 temporally R18 O2 96 breathing even and unlabored. pt asymptomatic. No current complaints of dizziness, weakness or lightheadedness. Michell Gracia ANGULAR DEVELOPER made aware. No new orders or interventions.
[2024-01-31] MEDS: cefEPime HCl/D5W 2 GM/50 ML PIGGYBACK IV (18:12)
[2024-01-31 20:25] LABS: Glucose, Whole Blood 187 mg/dL (60-115)
[2024-02-01] MEDS: HYDROmorphone HCl 1 MG/ML SYRINGE IVPUSH ×3 (01:36→09:17)
[2024-02-01] MEDS: ondansetron HCL 4 MG/2 ML VIAL IVPUSH ×2 (01:41→07:25)
[2024-02-01] MEDS: Lactated Ringers 1,000 ML 125 ML IVCONT ×3 (01:44→21:01)
[2024-02-01 04:00] VITALS: BP 124/65; PULSE 115; RESP 16; TEMP 37.2; O2SAT 98
[2024-02-01] MEDS: Pantoprazole Sodium 40 MG/10 ML VIAL IVPUSH ×2 (05:31→16:40)
[2024-02-01 06:11] LABS: Hematocrit 25.4 % (37.0-47.0); Hemoglobin 9.3 g/dl (12.0-16.0); Mean Corpuscular HGB Conc 36.6 g/dl (31.0-35.0); Mean Corpuscular Hemoglobin 30.4 pg (27.0-33.0); Mean Platelet Volume 11.7 fL (9.4-12.3); Red Blood Count 3.06 X10*6/uL (4.20-5.50); Red Cell Distribution Width 12.9 % (11.0-16.0); White Blood Count 6.8 X10*3/uL (4.8-10.8)
[2024-02-01 06:13] LABS: Platelet Count 60 X10*3/uL (160-400)
[2024-02-01 06:26] LABS: Alanine Aminotransferase 23 U/L (0-31); Albumin Level 2.4 g/dL (3.5-5.0); Alkaline Phosphatase 278 U/L (39-117); Anion Gap 12 (12-20); Aspartate Amino Transferase 38 U/L (5-31); Blood Urea Nitrogen 32 mg/dL (9-16); Calcium 7.8 mg/dL (8.4-10.2); Carbon Dioxide 16 mmol/L (22-29); Chloride 109 mmol/L (96-108); Creatinine Clr Calc Pharmacy 35.4; Estimated Glomerular Filt Rate 26; Glucose Random 189 mg/dL (60-115); Potassium 3.7 mmol/L (3.3-5.1); Sodium 133 mmol/L (135-145); Total Protein 5.1 g/dL (6.5-8.0)
[2024-02-01 07:17] LABS: Glucose, Whole Blood 167 mg/dL (60-115)
[2024-02-01 07:24] LABS: Atypical Lymph Absolute Manual 0.1 x10*3/uL; Atypical Lymphs Percent Manual 2 % (0-6); Band Neutrophils Percent 6 % (3-5); Lymphocytes Absolute Manual 0.3 X10*3/uL (1.2-4.9); Lymphocytes Percent Manual 5 % (20-40); Microcytosis 1+ (5-14) /OIF; Monocytes Absolute Manual 0.3 X10*3/uL (0.1-1.2); Monocytes Percent Manual 5 % (2-11); Neutrophils Percent Manual 82 % (45-73); RBC Morphology NOTED
[2024-02-01] MEDS: Insulin Lispro 100 UNIT/ML 3 ML VIAL SUBCUT ×2 (07:24→21:34)
[2024-02-01 07:25] LABS: Acanthocytes 2+ (3-5) /OIF; Platelet Estimate DECREASED (NORMAL); Platelet Morphology Comment NORMAL
[2024-02-01 07:26] LABS: Hypochromasia 1+ (5-14) /OIF; Toxic Granulation PRESENT
[2024-02-01 08:00] VITALS: BP 108/56; PULSE 117; RESP 16; TEMP 36.7; O2SAT 96
[2024-02-01] MEDS: Levothyroxine Sodium 175 MCG TABLET PO (08:18)
[2024-02-01] MEDS: oxyCODONE HCl Immed Release 5 MG TABLET 10 MG PO ×3 (08:18→19:30)
--- NOTE | 2024-02-01 08:56 | HO.PM.IMPN ---
Subjective Subjective Date of Service: 02/01/24 Review of Systems Follow up Sepsis, pyleo nausea and vomiting Physical Exam Vital Signs: Vital Signs: Last Vital Signs Temp 98.0 F 02/01/24 08:00 Pulse 117 H 02/01/24 08:00 Resp 16 02/01/24 08:00 BP 108/56 L 02/01/24 08:00 Pulse Ox 96 02/01/24 08:00 O2 Del Method Room Air 02/01/24 08:00 BMI result Body Mass Index 29.5 Appearing in no acute distress lung sounds are clear to auscultation heart regular rate rhythm, clear S1, S2 positive bowel sounds, abdomen is soft, nontender neuro patient is alert x3, no focal deficits Objective Data Active Medications Acetaminophen (Acetaminophen 325 Mg Tablet) 975 mg PO Q6H PRN PRN Reason: Pain, Mild (Pain Scale 1-3), fever or headache Last Admin: 01/31/24 01:58 Dose: 975 mg Documented By: BRYAN Calcium Carbonate (Calcium Carbonate 750 Mg Tab.Chew) 750 mg PO Q4H PRN PRN Reason: Heartburn Glucose (Glucose Gel 15 Gm Gel..Gram.) 15 gm PO Q15M PRN; Protocol PRN Reason: per Hypoglycemia Standing Ord. Hydromorphone HCl (Hydromorphone Hcl 1 Mg/Ml Syringe) 1 mg IVPUSH Q4H PRN; Protocol PRN Reason: Pain, Severe (Pain Scale 7-10) Last Admin: 02/01/24 05:31 Dose: 1 mg Documented By: JAMAR Lactated Ringer's (Lr) 1,000 mls @ 125 mls/hr IVCONT .Q8H [facility] Last Admin: 02/01/24 01:44 Dose: 125 mls/hr Documented By: JAMAR Dextrose (D10) 250 mls @ 750 mls/hr IV Q15M PRN; Protocol PRN Reason: per Hypoglycemia Standing Ord. Cefepime HCl (Maxipime) 2 gm in 50 mls @ 100 mls/hr IV Q24H [facility] Last Infusion: 01/31/24 18:46 Dose: Infused Documented By: ADOLFO Insulin Human Lispro (Insulin Lispro 100 Unit/Ml 3 Ml Vial) 0 unit SUBCUT QIDACHS [facility]; Protocol Last Admin: 02/01/24 07:24 Dose: 2 unit Documented By: TIFFANIE Levothyroxine Sodium (Levothyroxine Sodium 175 Mcg Tablet) 175 mcg PO DAILY@0630 [facility] Last Admin: 02/01/24 08:18 Dose: 175 mcg Documented By: TIFFANIE Magnesium Hydroxide (Milk Of Magnesia 30 Ml Oral.Susp) 30 ml PO DAILY PRN PRN Reason: Constipation Melatonin (Melatonin 3 Mg Tablet) 6 mg PO BEDTIME PRN PRN Reason: Insomnia Ondansetron HCl (Ondansetron Hcl 4 Mg/2 Ml Vial) 4 mg IVPUSH Q6H PRN PRN Reason: Nausea and Vomiting Last Admin: 02/01/24 07:25 Dose: 4 mg Documented By: TIFFANIE Oxycodone HCl (Oxycodone Hcl Immed Release 5 Mg Tablet) 10 mg PO Q4H PRN PRN Reason: Pain, Moderate(Pain Scale 4-6) Last Admin: 02/01/24 08:18 Dose: 10 mg Documented By: TIFFANIE Pantoprazole Sodium (Pantoprazole Sodium 40 Mg/10 Ml Vial) 40 mg IVPUSH BID@0630,1630 [facility] Last Admin: 02/01/24 05:31 Dose: 40 mg Documented By: JAMAR Sodium Chloride (0.9 % Sodium Chloride Flush 3 Ml Syringe) 3 ml IVFLUSH QSHIFT [facility] Last Admin: 02/01/24 07:33 Dose: Not Given Documented By: TIFFANIE Non-Admin Reason: IV Running Labs 02/01/24 06:00 02/01/24 06:00 Labs: Laboratory Results - last 24 hr 01/31/24 01/31/24 01/31/24 13:16 16:19 20:20 MCV MCH MCHC RDW Plt Count MPV Immature Gran % (Auto) Neut % (Auto) Lymph % (Auto) [place] % (Auto) Eos % (Auto) Baso % (Auto) Lymph # (Auto) [place] # (Auto) Eos # (Auto) Baso # (Auto) Abs Immat Gran (auto) Absolute Neuts (auto) Absolute Nucleated RBC Nucleated RBC % (auto) Neutrophils % (Manual) Band Neutrophils % Lymphocytes % (Manual) Atypical Lymphs % (Man) Monocytes % (Manual) Abs Neuts (Manual) Lymphocytes # (Manual) Atyp Lymphs # (Manual) Monocytes # (Manual) Toxic Granulation Platelet Estimate Plt Morphology Comment RBC Morphology Hypochromasia Microcytosis Acanthocytes (Spur) Anion Gap Estim Creat Clear Calc Estimated GFR POC Glucose 231 H 211 H 187 H Random Glucose Calcium Total Bilirubin AST ALT Alkaline Phosphatase Total Protein Albumin 02/01/24 02/01/24 06:00 07:12 MCV 83.0 MCH 30.4 MCHC 36.6 H RDW 12.9 Plt Count 60 L MPV 11.7 Immature Gran % (Auto) 8.9 H Neut % (Auto) 74.4 H Lymph % (Auto) 7.5 L [place] % (Auto) 8.8 Eos % (Auto) 0.0 Baso % (Auto) 0.4 Lymph # (Auto) 0.5 L [place] # (Auto) 0.6 Eos # (Auto) 0.0 Baso # (Auto) 0.0 Abs Immat Gran (auto) 0.61 H Absolute Neuts (auto) 5.1 Absolute Nucleated RBC 0.000 Nucleated RBC % (auto) 0.0 Neutrophils % (Manual) 82 H Band Neutrophils % 6 H Lymphocytes % (Manual) 5 L Atypical Lymphs % (Man) 2 Monocytes % (Manual) 5 Abs Neuts (Manual) 6.0 Lymphocytes # (Manual) 0.3 L Atyp Lymphs # (Manual) 0.1 Monocytes # (Manual) 0.3 Toxic Granulation PRESENT Platelet Estimate DECREASED Plt Morphology Comment NORMAL RBC Morphology NOTED Hypochromasia 1+ (5-14) Microcytosis 1+ (5-14) Acanthocytes (Spur) 2+ (3-5) Anion Gap 12 Estim Creat Clear Calc 35.4 Estimated GFR 26 POC Glucose 167 H Random Glucose 189 H Calcium 7.8 L Total Bilirubin 3.0 H AST 38 H ALT 23 Alkaline Phosphatase 278 H Total Protein 5.1 L Albumin 2.4 L Microbiology Microbiology Results: Microbiology 01/30/24 17:30 Urine Culture - Final Urine clean catch - Clean Catch Midstream Klebsiella pneumoniae 01/30/24 17:39 Blood Culture - Preliminary Blood - Venous Prelim: GNR Gram Stain only 01/30/24 17:35 Blood Culture - Preliminary Blood - Venous Prelim: GNR Gram Stain only Assessment and Plan (1) Pyelonephritis of left kidney: Status: Acute Plan Patient is a 43-year-old female with a past medical history significant for renal cell carcinoma status post right nephrectomy, type 2 diabetes, hypothyroid and chronic urticaria, who presented to the ED with 5 days of chills, aches, left flank pain, nausea and vomiting. GNR bacteremia continue Cefepime Urine culture: Klebsiella pneumoniae Blood culture GNR Sepsis secondary to pyelonephritis with Klebsiella pneumonia UTI +bands, no leukocytosis, hypotensive and tachy, lactate normal, blood cultures pending continue LR 125ml/hr CXR negative Abd/pelvic CT with perinephric stranding left kidney continue cefepime pantoprazole BID to prevent stress ulcer MERLY. Improving likely multifactorial with solitary kidney, sepsis, NSAID use, vomiting creatinine 2.6, baseline 1.1 last month per patient portal @[facility] on her phone LR 125ml/hr avoid nephrotoxins counseled pt to avoid ibuprofen monitor CMP elevated LFTs likely due to sepsis RUQ US negative hold mounjaro monitor CMP thrombocytopenia likely due to sepsis monitor CBC T2DM SSI diabetic diet hold mounjaro hypothyroid continue levothyroxine full code VTE prophy: pneumoboots, meds contraindicated due to thrombocytopenia Quality Stroke Does the patient have a stroke diagnosis?: No VTE Prior VTE?: No VTE Risk Level:: Medical - moderate - high VTE Device Contraindication: N/A - Device Ordered VTE Drug Contraindication: Treatment Not Indicated
[2024-02-01 10:44] VITALS: BP 94/53; PULSE 110; RESP 16; TEMP 36.6; O2SAT 95
--- NOTE | 2024-02-01 11:10 | MHC.CM.PN ---
Per MD rounds, patient not medically cleared for dc. CM will continue to follow.
[2024-02-01 11:18] LABS: Glucose, Whole Blood 130 mg/dL (60-115)
--- NOTE | 2024-02-01 12:40 | P.CDIM_ITS ---
PROVIDER RESPONSE TEXT: To clarify, the appropriate diagnosis supported by the clinical indicators: Acute QUERY TEXT: PHYSICIAN'S DOCUMENTATION REQUEST Date of Query: 02/01/2024 10:46 AM EST Patient Name: Shari Gracia Admit Date: 01/31/2024 Dear Michell Gracia RADIATION PROTECTION ENGINEER, A review of the medical record indicates additional documentation may be needed. Please review below and update the documentation accordingly. Clinical Indicators: Per Hospitalist Progress Note 02/01/24: Sepsis, Pyelonephritis continue Cefepime Urine culture: Klebsiella pneumoniae Clarify which of the following accurately represents the acuity of the Pyelonephritis. Possible options might include: Acute Acute on chronic Compensated Chronic stable condition Remission Other (explain) Clinically unable to determine (explain) Thank you, Jannette Ochoa RN Use of terms such as suspected, likely, concern for, or probable (associated with a specific diagnosi s that is being evaluated, monitored, or treated as if it exists) are acceptable and can be coded in the inpatient se tting, when documented at the time of discharge. Please use your independent medical judgment in providing your response. THIS QUERY IS PART OF THE PERMANENT MEDICAL RECORD
[2024-02-01 15:52] VITALS: BP 122/65; PULSE 96; RESP 18; TEMP 36.8; O2SAT 96
[2024-02-01 16:19] LABS: Glucose, Whole Blood 150 mg/dL (60-115)
[2024-02-01] MEDS: cefEPime HCl/D5W 2 GM/50 ML PIGGYBACK IV (18:09)
[2024-02-01 19:37] VITALS: BP 92/58; PULSE 112; RESP 16; TEMP 36.8; O2SAT 96
[2024-02-01 21:01] LABS: Glucose, Whole Blood 187 mg/dL (60-115)
[2024-02-01 23:25] VITALS: BP 98/62; PULSE 112; RESP 16; TEMP 37.7; O2SAT 97
[2024-02-02] MEDS: Lactated Ringers 1,000 ML 125 ML IVCONT (03:00)
[2024-02-02 03:10] VITALS: BP 110/61; PULSE 121; RESP 18; TEMP 37.2; O2SAT 97
[2024-02-02] MEDS: Levothyroxine Sodium 175 MCG TABLET PO (06:14)
[2024-02-02] MEDS: Pantoprazole Sodium 40 MG/10 ML VIAL IVPUSH ×2 (06:14→17:05)
[2024-02-02 07:13] VITALS: BP 120/60; PULSE 116; RESP 16; TEMP 36.3; O2SAT 94
[2024-02-02 07:20] LABS: Glucose, Whole Blood 150 mg/dL (60-115)
[2024-02-02 07:58] LABS: Mean Corpuscular Volume 83.3 fL (80.0-98.0); Mean Platelet Volume 11.3 fL (9.4-12.3); Red Cell Distribution Width 13.2 % (11.0-16.0); White Blood Count 9.1 X10*3/uL (4.8-10.8)
[2024-02-02 07:59] LABS: Platelet Count 99 X10*3/uL (160-400)
[2024-02-02 08:33] LABS: Alanine Aminotransferase 15 U/L (0-31); Albumin Level 2.2 g/dL (3.5-5.0); Alkaline Phosphatase 247 U/L (39-117); Anion Gap 12 (12-20); Aspartate Amino Transferase 26 U/L (5-31); Bilirubin Total 2.7 mg/dL (0.0-1.0); Blood Urea Nitrogen 27 mg/dL (9-16); Calcium 8.1 mg/dL (8.4-10.2); Carbon Dioxide 18 mmol/L (22-29); Chloride 107 mmol/L (96-108); Creatinine Clr Calc Pharmacy 31.6; Estimated Glomerular Filt Rate 23; Glucose Random 172 mg/dL (60-115); Potassium 3.6 mmol/L (3.3-5.1); Sodium 133 mmol/L (135-145); Total Protein 5.3 g/dL (6.5-8.0)
[2024-02-02 08:41] LABS: Atypical Lymph Absolute Manual 0.3 x10*3/uL; Atypical Lymphs Percent Manual 3 % (0-6); Band Neutrophils Percent 1 % (3-5); Lymphocytes Absolute Manual 0.5 X10*3/uL (1.2-4.9); Lymphocytes Percent Manual 5 % (20-40); Monocytes Absolute Manual 0.4 X10*3/uL (0.1-1.2); Monocytes Percent Manual 4 % (2-11); Neutrophils Percent Manual 87 % (45-73)
[2024-02-02 08:43] LABS: Platelet Estimate DECREASED (NORMAL); Platelet Morphology Comment NORMAL; RBC Morphology NORMAL
[2024-02-02 08:47] LABS: Anion Gap 13 (12-20); Blood Urea Nitrogen 29 mg/dL (9-16); Calcium 8.3 mg/dL (8.4-10.2); Carbon Dioxide 17 mmol/L (22-29); Chloride 107 mmol/L (96-108); Creatinine Clr Calc Pharmacy 31.6; Estimated Glomerular Filt Rate 23; Glucose Random 185 mg/dL (60-115); Potassium 3.5 mmol/L (3.3-5.1); Sodium 133 mmol/L (135-145)
--- NOTE | 2024-02-02 09:40 | P.CONNP_ITS ---
History of Present Illness Reason for Consult Consult date: 02/02/24 Chief Complaint Chief complaint: sepsis, pyelonephritis History of Present Illness Narrative: 43 y/o female with a medical history of renal cell carcinoma w/p right nephrectomy in 2005, DMII, hypothyroidism, gastric sleeve 2022. Reports gallbladder removed earlier in 2023. Pt reports she does not see a kidney doctor. Presented 01/29 with 5 days of chills, aches, left flank pain, nausea, vomiting, cough, dyspnea. being treated for sepsis from pyelonephritis. Nephrology consulted for MERLY. baseline creatinine 1.1 01/29 creatinine 2.60, 01/30 was 2.40 01/31 was 2.05 02/01 is 2.29 of note, thrombocytopenia, elevated LFTs CT abdomen/pelvis 01/29 showed: s/p right nephrectomy, mild left perinephritic stranding without hydronephrosis/ureter, no calculi seen. Also showed splenomegaly and mild hepatomegaly. blood cultures +klebseilla, as well as urine culture patient reports she took ibuprofen 800mg every 8 hours for 5 days leading up to admission for abdominal pain and myalgias states she has this for migraines but usually does not take regularly also had poor PO intake, reports nausea and vomiting and was not eating/drinking much week prior to hospitalization she reports she currently continues with myalgias, as well as left lower quadrant pain in her abdomen. she denies dyspnea she denies pain with urination, difficulty emptying bladder, states she has been urinating regularly/comfortably she is working on drinking fluids, also on LR at 125mL/hr blood pressure 88/50 on 01/30; 90s-120s otherwise HR tachycardic 110s Review of Systems Constitutional: Reports body ache(s), Reports headache(s), Reports malaise, Reports poor appetite and Reports weakness Reports dizziness and Reports headache(s) Cardiovascular: Denies chest pain, Denies leg edema, Denies lightheadedness and Denies dyspnea Respiratory: Denies cough and Denies dyspnea Gastrointestinal: Reports abdominal pain (LLQ abdominal pain), Denies constipation, Denies diarrhea, Denies nausea and Denies vomiting Genitourinary: Denies hematuria, Denies difficulty voiding, Denies dysuria, Denies pelvic pain, Denies flank pain, Denies urinary incontinence and Denies urinary hesitancy Musculoskeletal: Reports arthralgias (reports posterior neck pain) Skin/Breast: Denies rash Reports dizziness, Reports headache(s) and Reports weakness PMFSH Past Medical History Medical History (Updated 01/30/24 @ 23:13 by Lenora Hernández PA-C) Renal cell carcinoma of right kidney Urticaria Hypothyroid Diabetes type 2, controlled Surgical History Surgical History (Updated 02/02/24 @ 10:14 by Humaira Nguyen, DNP, CONSULTING PROPERTY MANAGER-BC) History of cholecystectomy H/O gastric sleeve H/O right nephrectomy Social History Social History Household Members: Significant Other and Children Housing: House Do you presently have visiting nurse or other home services: No Patient Tobacco Use Status: Never used Tobacco Smoked in Last 30 Days: No Use of substances other than those prescribed or required for medical reasons: No Currently Displaying Signs/Symptoms of Drug Intoxication Withdrawal: No Have you been hit, kicked, punched, or otherwise hurt by someone within the past year? If so, by whom?: No Do you feel safe in your current relationship?: Yes Is there a partner from a previous relationship who is making you feel unsafe now?: No Are you made to feel afraid or neglected: No Advance Directives: No Advance Directives Information Provided: No Do you have a plan to hurt others: No Plan Recently lost weight without trying: No How much weight loss: Not applicable Eating poorly because of decreased appetite: Yes Nutrition screen score: 1 Nutrition Risks: No Nutritional Risk Patient : No : No Poor oral hygiene: No service: No Meds Allergies Allergy/AdvReac Type Severity Reaction Status Date / Time erythromycin base Allergy Unknown HIVES Verified 01/30/24 16:06 [ERYTHROMYCIN BASE] metronidazole [From FLAGYL] Allergy Unknown ANAPHYLAXIS Verified 01/30/24 16:06 ofloxacin [From FLOXIN] Allergy Unknown ANAPHYLAXIS Verified 01/30/24 16:06 Penicillins [PENICILLINS] Allergy Unknown HIVES Verified 01/30/24 16:06 vancomycin [VANCOMYCIN] Allergy Unknown HIVES Verified 01/30/24 16:06 Iodinated Contrast Media Allergy Hives Verified 01/30/24 16:06 [Contrast Dye] morphine Allergy Vomiting Verified 01/30/24 16:06 Active Medications: Current Medications Acetaminophen (Acetaminophen 325 Mg Tablet) 975 mg PO Q6H PRN PRN Reason: Pain, Mild (Pain Scale 1-3), fever or headache Last Admin: 01/31/24 01:58 Dose: 975 mg Calcium Carbonate (Calcium Carbonate 750 Mg Tab.Chew) 750 mg PO Q4H PRN PRN Reason: Heartburn Glucose (Glucose Gel 15 Gm Gel..Gram.) 15 gm PO Q15M PRN; Protocol PRN Reason: per Hypoglycemia Standing Ord. Hydromorphone HCl (Hydromorphone Hcl 1 Mg/Ml Syringe) 1 mg IVPUSH Q4H PRN; Protocol PRN Reason: Pain, Severe (Pain Scale 7-10) Last Admin: 02/01/24 09:17 Dose: 1 mg Lactated Ringer's (Lr) 1,000 mls @ 125 mls/hr IVCONT .Q8H [facility] Last Admin: 02/02/24 03:00 Dose: 125 mls/hr Dextrose (D10) 250 mls @ 750 mls/hr IV Q15M PRN; Protocol PRN Reason: per Hypoglycemia Standing Ord. Cefepime HCl (Maxipime) 2 gm in 50 mls @ 100 mls/hr IV Q24H [facility] Last Infusion: 02/01/24 18:40 Dose: Infused Insulin Human Lispro (Insulin Lispro 100 Unit/Ml 3 Ml Vial) 0 unit SUBCUT QIDACHS [facility]; Protocol Last Admin: 02/02/24 07:23 Dose: Not Given Levothyroxine Sodium (Levothyroxine Sodium 175 Mcg Tablet) 175 mcg PO DAILY@0630 [facility] Last Admin: 02/02/24 06:14 Dose: 175 mcg Magnesium Hydroxide (Milk Of Magnesia 30 Ml Oral.Susp) 30 ml PO DAILY PRN PRN Reason: Constipation Melatonin (Melatonin 3 Mg Tablet) 6 mg PO BEDTIME PRN PRN Reason: Insomnia Ondansetron HCl (Ondansetron Hcl 4 Mg/2 Ml Vial) 4 mg IVPUSH Q6H PRN PRN Reason: Nausea and Vomiting Last Admin: 02/01/24 07:25 Dose: 4 mg Oxycodone HCl (Oxycodone Hcl Immed Release 5 Mg Tablet) 10 mg PO Q4H PRN PRN Reason: Pain, Moderate(Pain Scale 4-6) Last Admin: 02/02/24 09:44 Dose: 10 mg Pantoprazole Sodium (Pantoprazole Sodium 40 Mg/10 Ml Vial) 40 mg IVPUSH BID@0630,1630 [facility] Last Admin: 02/02/24 06:14 Dose: 40 mg Sodium Chloride (0.9 % Sodium Chloride Flush 3 Ml Syringe) 3 ml IVFLUSH QSHIFT [facility] Last Admin: 02/02/24 07:24 Dose: Not Given Home Medications ?Medication ?Instructions ?Recorded ?Confirmed ?Last Taken ?Type cholecalciferol (vitamin D3) 125 125 mcg PO DAILY 01/31/24 01/31/24 01/28/24 History mcg (5,000 unit) tablet (Vitamin D3) colchicine 0.6 mg tablet 0.6 mg PO DAILY PRN flare 01/31/24 01/31/24 01/28/24 History ibuprofen 800 mg tablet 800 mg PO BID low back pain 01/31/24 01/31/24 01/28/24 History levocetirizine 5 mg tablet 10 mg PO BID 01/31/24 01/31/24 01/28/24 History levothyroxine 175 mcg tablet 175 mcg PO DAILY@0630 01/31/24 01/31/24 01/28/24 History ondansetron HCl 4 mg tablet 4 mg PO Q8H PRN Nausea And Vomiting 01/31/24 01/31/24 01/28/24 History tirzepatide 5 mg/0.5 mL 5 mg subcut MO 01/31/24 01/31/24 01/25/24 History subcutaneous pen injector (Rj) Physical Exam Vital Signs: Last Vital Signs Temp 97.4 F 02/02/24 07:13 Pulse 116 H 02/02/24 07:13 Resp 16 02/02/24 07:13 BP 120/60 02/02/24 07:13 Pulse Ox 94 02/02/24 07:13 O2 Del Method Room Air 02/02/24 07:13 BMI result Body Mass Index 29.5 Const General: no acute distress, alert, awake and tired appearing Neck Neck: Yes no JVD Resp Effort & Inspection: normal respiratory effort and able to speak in complete sentences Auscultation: clear to auscultation bilaterally Cardio Jugular venous distension: no JVD Rate: regular rate Rhythm: regular rhythm Heart sounds: S1 normal heart sound present and S2 normal heart sound present GI Palpation (GI): Soft to palpation and Tenderness to palpation present (GI) in the LLQ General: Yes no CVA tenderness Back/Spine/Pelvis Back: no CVA tenderness Skin Rashes: no rashes Extrem General: No edema and No pedal edema Results Lab Results 02/02/24 06:23 02/02/24 08:11 Lab results: Chemistry 01/30/24 01/31/24 01/31/24 16:22 00:37 05:30 Sodium 133 L 137 133 L Potassium 3.6 4.5 D 3.1 L D Carbon Dioxide 16 L 16 L 16 L BUN 39 H 36 H 35 H Creatinine 2.60 H 2.40 H 2.46 H Calcium 8.8 7.8 L D 7.4 L 02/01/24 02/02/24 02/02/24 06:00 06:23 08:11 Sodium 133 L 133 L 133 L Potassium 3.7 3.6 3.5 Carbon Dioxide 16 L 18 L 17 L BUN 32 H 27 H 29 H Creatinine 2.05 H 2.29 H 2.29 H Calcium 7.8 L 8.1 L 8.3 L Hematology 01/30/24 01/31/24 02/01/24 16:22 05:30 06:00 WBC 6.2 8.6 6.8 Hgb 12.3 9.0 L D 9.3 L Plt Count 71 L 48 L D 60 L 02/02/24 06:23 WBC 9.1 Hgb 9.0 L Plt Count 99 L D Urinalysis 01/30/24 17:30 Urine Color Dark Yellow Urine Appearance Cloudy Urine pH 5.5 Ur Specific [place] 1.020 Urine Protein 100 (2+) H Urine Glucose (UA) Negative Urine Ketones Trace Urine Blood Large (3+) H Urine Nitrite Positive H Ur Leukocyte Esterase Moderate (2+) H Urine RBC 0-2 Urine WBC 11-20 Ur Squamous Epith Cells 11-20 Hyaline Casts 6-10 Assessment and Plan (1) Acute kidney injury: Status: Acute (2) Pyelonephritis of left kidney: Status: Acute (3) History of right nephrectomy: Status: Acute Plan MERLY most likely due to ATN due to hypoperfusion in setting of poor PO intake, vomiting and high-dose NSAID use patient also has a thrombocytopenia, anemia, will check haptoglobin and LDH recommend peripheral smear to check for schistocytes consider thrombotic microangiopathy (elevated liver enzymes) (Adamants for TTP) as she has DMII- less likely, no rash, no known vascular disease, has klebsiella in blood and urine makes less likely. will check urine prot/creatinine ratio recommend continuing supportive care, avoid nephrotoxins regular blood prsesure checks, monitor I&O Will continue to follow Discussed with Dr Goodson Procedures Date of Service Date of Service: 02/02/24
[2024-02-02] MEDS: oxyCODONE HCl Immed Release 5 MG TABLET 10 MG PO ×2 (09:44→19:35)
--- NOTE | 2024-02-02 09:50 | P.PNIM_ITS ---
Subjective Subjective Date of Service: 02/02/24 Interval History: Seen for follow up Sepsis secondary to pyelonephritis with Klebsiella pneumonia UTI, GNR bacteremia, and MERLY Reports improvement in nausea and vomiting, and pain related to kidneys, reports discomfort now is from being in hospital bed- encouraged ambulation and frequent position changes Review of Systems Review of Systems: Yes all other systems are reviewed and are negative Genitourinary Genitourinary: Reports no additional female genitourinary complaints Physical Exam 2 Vital Signs: Vital Signs: Last Vital Signs Temp 97.4 F 02/02/24 07:13 Pulse 116 H 02/02/24 07:13 Resp 16 02/02/24 07:13 BP 120/60 02/02/24 07:13 Pulse Ox 94 02/02/24 07:13 O2 Del Method Room Air 02/02/24 07:13 BMI result Body Mass Index 29.5 Const: General: cooperative, no acute distress, alert and awake Nutritional Appearance: overweight Orientation/consciousness: patient oriented x3 L imitations: no limitations Resp: Effort & Inspection: normal respiratory effort Auscultation: clear to auscultation bilaterally Cardio: Jugular venous distension: no JVD Rate: tachycardic Rhythm: r egular rhythm Heart sounds: S1 normal heart sound present and S2 normal heart sound present GI: Inspection: Yes normal to inspection Auscultation: normal bowel sounds Neuro: General: patient oriented x3 Objective Data Active Medications Acetaminophen (Acetaminophen 325 Mg Tablet) 975 mg PO Q6H PRN PRN Reason: Pain, Mild (Pain Scale 1-3), fever or headache Last Admin: 01/31/24 01:58 Dose: 975 mg Documented By: BRYAN Calcium Carbonate (Calcium Carbonate 750 Mg Tab.Chew) 750 mg PO Q4H PRN PRN Reason: Heartburn Glucose (Glucose Gel 15 Gm Gel..Gram.) 15 gm PO Q15M PRN; Protocol PRN Reason: per Hypoglycemia Standing Ord. Hydromorphone HCl (Hydromorphone Hcl 1 Mg/Ml Syringe) 1 mg IVPUSH Q4H PRN; Protocol PRN Reason: Pain, Severe (Pain Scale 7-10) Last Admin: 02/01/24 09:17 Dose: 1 mg Documented By: TIFFANIE Lactated Ringer's (Lr) 1,000 mls @ 125 mls/hr IVCONT .Q8H [facility] Last Admin: 02/02/24 03:00 Dose: 125 mls/hr Documented By: BARB Dextrose (D10) 250 mls @ 750 mls/hr IV Q15M PRN; Protocol PRN Reason: per Hypoglycemia Standing Ord. Cefepime HCl (Maxipime) 2 gm in 50 mls @ 100 mls/hr IV Q24H [facility] Last Infusion: 02/01/24 18:40 Dose: Infused Documented By: TIFFANIE Insulin Human Lispro (Insulin Lispro 100 Unit/Ml 3 Ml Vial) 0 unit SUBCUT QIDACHS [facility]; Protocol Last Admin: 02/02/24 07:23 Dose: Not Given Documented By: TIFFANIE Non-Admin Reason: No Insulin Coverage Levothyroxine Sodium (Levothyroxine Sodium 175 Mcg Tablet) 175 mcg PO DAILY@0630 [facility] Last Admin: 02/02/24 06:14 Dose: 175 mcg Documented By: BARB Magnesium Hydroxide (Milk Of Magnesia 30 Ml Oral.Susp) 30 ml PO DAILY PRN PRN Reason: Constipation Melatonin (Melatonin 3 Mg Tablet) 6 mg PO BEDTIME PRN PRN Reason: Insomnia Ondansetron HCl (Ondansetron Hcl 4 Mg/2 Ml Vial) 4 mg IVPUSH Q6H PRN PRN Reason: Nausea and Vomiting Last Admin: 02/01/24 07:25 Dose: 4 mg Documented By: TIFFANIE Oxycodone HCl (Oxycodone Hcl Immed Release 5 Mg Tablet) 10 mg PO Q4H PRN PRN Reason: Pain, Moderate(Pain Scale 4-6) Last Admin: 02/02/24 09:44 Dose: 10 mg Documented By: TIFFANIE Pantoprazole Sodium (Pantoprazole Sodium 40 Mg/10 Ml Vial) 40 mg IVPUSH BID@0630,1630 [facility] Last Admin: 02/02/24 06:14 Dose: 40 mg Documented By: BARB Sodium Chloride (0.9 % Sodium Chloride Flush 3 Ml Syringe) 3 ml IVFLUSH QSHIFT [facility] Last Admin: 02/02/24 07:24 Dose: Not Given Documented By: TIFFANIE Non-Admin Reason: IV Running Labs 02/02/24 06:23 02/02/24 08:11 Labs: Laboratory Results - last 24 hr 02/01/24 02/01/24 02/01/24 11:13 16:15 20:53 MCV MCH MCHC RDW Plt Count MPV Immature Gran % (Auto) Neut % (Auto) Lymph % (Auto) Lynn % (Auto) Eos % (Auto) Baso % (Auto) Lymph # (Auto) Lynn # (Auto) Eos # (Auto) Baso # (Auto) Abs Immat Gran (auto) Absolute Neuts (auto) Absolute Nucleated RBC Nucleated RBC % (auto) Neutrophils % (Manual) Band Neutrophils % Lymphocytes % (Manual) Atypical Lymphs % (Man) Monocytes % (Manual) Abs Neuts (Manual) Lymphocytes # (Manual) Atyp Lymphs # (Manual) Monocytes # (Manual) Platelet Estimate Plt Morphology Comment RBC Morphology Anion Gap Estim Creat Clear Calc Estimated GFR POC Glucose 130 H 150 H 187 H Random Glucose Calcium Total Bilirubin AST ALT Alkaline Phosphatase Total Protein Albumin 02/02/24 02/02/24 02/02/24 06:23 07:11 08:11 MCV 83.3 MCH 30.0 MCHC 36.0 H RDW 13.2 Plt Count 99 L D MPV 11.3 Immature Gran % (Auto) Cancelled Neut % (Auto) Cancelled Lymph % (Auto) Cancelled Lynn % (Auto) Cancelled Eos % (Auto) Cancelled Baso % (Auto) Cancelled Lymph # (Auto) Cancelled Lynn # (Auto) Cancelled Eos # (Auto) Cancelled Baso # (Auto) Cancelled Abs Immat Gran (auto) Cancelled Absolute Neuts (auto) Cancelled Absolute Nucleated RBC 0.000 Nucleated RBC % (auto) 0.0 Neutrophils % (Manual) 87 H Band Neutrophils % 1 L Lymphocytes % (Manual) 5 L Atypical Lymphs % (Man) 3 Monocytes % (Manual) 4 Abs Neuts (Manual) 8.0 Lymphocytes # (Manual) 0.5 L Atyp Lymphs # (Manual) 0.3 Monocytes # (Manual) 0.4 Platelet Estimate DECREASED Plt Morphology Comment NORMAL RBC Morphology NORMAL Anion Gap 12 13 Estim Creat Clear Calc 31.6 31.6 Estimated GFR 23 23 POC Glucose 150 H Random Glucose 172 H 185 H Calcium 8.1 L 8.3 L Total Bilirubin 2.7 H AST 26 ALT 15 Alkaline Phosphatase 247 H Total Protein 5.3 L Albumin 2.2 L Microbiology Microbiology Results: Microbiology 01/30/24 17:39 Blood Culture - Final Blood - Venous Klebsiella pneumoniae 01/30/24 17:35 Blood Culture - Final Blood - Venous Klebsiella pneumoniae 01/30/24 17:30 Urine Culture - Final Urine clean catch - Clean Catch Midstream Klebsiella pneumoniae Assessment and Plan (1) Diabetes type 2, controlled: Status: Acute Plan Patient is a 43-year-old female with a past medical history significant for renal cell carcinoma status post right nephrectomy, type 2 diabetes, hypothyroid and chronic urticaria, who presented to the ED with 5 days of chills, aches, left flank pain, nausea and vomiting. Klebsiella pneumonia bacteremia continue Cefepime Both blood and urine culture positive Sepsis secondary to pyelonephritis with Klebsiella pneumonia UTI sepsis resolved blood cultures postive for Klebsiella continue LR 125ml/hr continue cefepime pantoprazole BID to prevent stress ulcer MERLY. worsening likely multifactorial with solitary kidney, sepsis, NSAID use baseline 1.1 last month per patient portal @[facility] on her phone Stop LR 125ml/hr Seen by Nephrology>rec check haptoglobin and LDH elevated LFTs improved hold mounjaro monitor CMP thrombocytopenia improving monitor CBC T2DM SSI diabetic diet hold mounjaro hypothyroid continue levothyroxine full code VTE prophy: pneumoboots, meds contraindicated due to thrombocytopenia Quality Stroke Does the patient have a stroke diagnosis?: No VTE Prior VTE?: No VTE Risk Level:: Medical - moderate - high VTE Device Contraindication: N/A - Device Ordered VTE Drug Contraindication: Treatment Not Indicated
[2024-02-02 11:03] LABS: Glucose, Whole Blood 247 mg/dL (60-115)
[2024-02-02 11:14] VITALS: BP 107/62; PULSE 112; RESP 16; TEMP 36.8; O2SAT 94
[2024-02-02] MEDS: Insulin Lispro 100 UNIT/ML 3 ML VIAL SUBCUT ×3 (12:14→22:04)
[2024-02-02 15:08] LABS: Lactate Dehydrogenase 234 U/L (122-220)
[2024-02-02 15:10] LABS: Haptoglobin 191 mg/dL (35-250)
[2024-02-02 15:13] VITALS: BP 112/72; PULSE 118; RESP 16; TEMP 37.5; O2SAT 95
[2024-02-02 16:16] LABS: Glucose, Whole Blood 157 mg/dL (60-115)
[2024-02-02] MEDS: 0.9 % Sodium Chloride Flush 3 ML SYRINGE IVFLUSH ×2 (17:08→22:07)
[2024-02-02] MEDS: cefEPime HCl/D5W 2 GM/50 ML PIGGYBACK IV (18:11)
[2024-02-02] MEDS: ondansetron HCL 4 MG/2 ML VIAL IVPUSH (18:24)
[2024-02-02 19:25] VITALS: BP 103/60; PULSE 118; RESP 16; TEMP 37.3; O2SAT 95
[2024-02-02 19:42] VITALS: PULSE 112
[2024-02-02 22:03] LABS: Glucose, Whole Blood 162 mg/dL (60-115)
[2024-02-03] VITALS: BP 98/50; PULSE 102; RESP 16; TEMP 36.9; O2SAT 97
[2024-02-03 00:08] LABS: Creatinine Urine 65.54 mg/dL; Protein/Creatinine Ratio, Ur 1.02 (<0.2); Total Protein Urine Random 67 mg/dL (<12)
[2024-02-03 04:00] VITALS: BP 101/57; PULSE 106; RESP 16; TEMP 36.1; O2SAT 94
[2024-02-03] MEDS: Pantoprazole Sodium 40 MG/10 ML VIAL IVPUSH (06:13)
[2024-02-03] MEDS: Levothyroxine Sodium 175 MCG TABLET PO (06:13)
[2024-02-03 07:37] LABS: Hematocrit 22.3 % (37.0-47.0); Hemoglobin 8.1 g/dl (12.0-16.0); Mean Corpuscular HGB Conc 36.3 g/dl (31.0-35.0); Mean Corpuscular Hemoglobin 30.1 pg (27.0-33.0); Mean Corpuscular Volume 82.9 fL (80.0-98.0); Mean Platelet Volume 10.2 fL (9.4-12.3); Platelet Count 124 X10*3/uL (160-400); Red Blood Count 2.69 X10*6/uL (4.20-5.50); Red Cell Distribution Width 13.4 % (11.0-16.0); White Blood Count 11.2 X10*3/uL (4.8-10.8)
[2024-02-03 07:43] VITALS: BP 107/67; PULSE 95; RESP 18; TEMP 36.9; O2SAT 95
[2024-02-03 07:48] LABS: Glucose, Whole Blood 166 mg/dL (60-115)
[2024-02-03 07:51] LABS: Anion Gap 12 (12-20); Blood Urea Nitrogen 28 mg/dL (9-16); Calcium 8.1 mg/dL (8.4-10.2); Carbon Dioxide 17 mmol/L (22-29); Chloride 107 mmol/L (96-108); Creatinine Clr Calc Pharmacy 33.2; Estimated Glomerular Filt Rate 25; Glucose Random 185 mg/dL (60-115); Potassium 3.5 mmol/L (3.3-5.1); Sodium 132 mmol/L (135-145)
[2024-02-03] MEDS: Insulin Lispro 100 UNIT/ML 3 ML VIAL SUBCUT (08:25)
[2024-02-03] MEDS: 0.9 % Sodium Chloride Flush 3 ML SYRINGE IVFLUSH (08:26)
--- NOTE | 2024-02-03 09:01 | PM.DS ---
DS: Providers Provider Date of Service: 02/03/24 Date of admission: 01/30/24 22:38 Primary care physician: Rigoberto Kent MD Consults: 02/02/24 09:06 Consult to Nephrology Routine Consulting Provider: [facility] Reason for consultation: merly DS: Diagnosis Discharge Diagnosis (1) Acute kidney injury: Status: Acute (2) Pyelonephritis of left kidney: Status: Acute (3) History of right nephrectomy: Status: Acute DS: Summary Hospital Course Hospital Course: History and physical as per admitting provider. Patient is a 43-year-old female with a past medical history significant for renal cell carcinoma status post right nephrectomy, type 2 diabetes, hypothyroid and chronic urticaria, who presented to the ED with 5 days of chills, aches, left flank pain, nausea and vomiting. She denies any dysuria, urinary frequency or urinary symptoms. She reports a possible temp of 95 degrees at home, normal here. She also complains of a cough with shortness of breath. No nasal congestion or sore throat. 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 She has been taking ibuprofen 800 mg for her flank pain. No hematemesis or hematuria. 43-year-old woman treated for sepsis secondary to pyelonephritis, Klebsiella pneumonia bacteremia and Klebsiella pneumonia UTI. Patient was treated with IV fluids, IV cefepime. She initially was treated with IV narcotic pain medications for severe CVA tenderness but has since weaned off. She is taking a solid food diet without any nausea or vomiting. She will be treated for total of 14 days for bacteremia. She has a history of a solo kidney and was noted to have MERLY. Apparently her baseline creatinine is 1.1 that was noted on her [facility] patient portal last month. She was seen and examined by Nephrology while inpatient here. Her initial creatinine was noted to be 2.60 with repeat of 2.18. Plan is for her to follow-up with Nephrology outpatient and repeat BMP in 1 week. She had noted elevated LFTs which have improved, her Mounjaro was held during hospitalization Thrombocytopenia. Improved during hospitalization Diabetes mellitus type 2. Continue Medrol Hypothyroidism. Continue levothyroxin Time Attestation Discharge Coordination Time (in mins): 40 Quality: Safe Use of Opioids Does Pt have an Active Cancer Diagnosis on the Problem List?: No Quality: Stroke Does the patient have a stroke diagnosis?: No Physical Exam Vital Signs: Vital Signs: Last Vital Signs Temp 98.5 F 02/03/24 07:43 Pulse 95 02/03/24 07:43 Resp 18 02/03/24 07:43 BP 107/67 02/03/24 07:43 Pulse Ox 95 02/03/24 07:43 O2 Del Method Room Air 02/03/24 07:43 BMI result Body Mass Index 29.5 Appearing in no acute distress head is normocephalic atraumatic eyes pupils are PERRLA sclera is anicteric mouth throat mucous membranes are intact and moist neck is supple no lymphadenopathy, no JVD noted lung sounds are clear to auscultation heart regular rate rhythm, clear S1, S2 positive bowel sounds, abdomen is soft, nontender neuro patient is alert x3, no focal deficits DS: Data Data Completed and Pending Labs on day of discharge: Laboratory Results - last 24 hr 02/02/24 02/02/24 02/02/24 06:23 07:53 08:11 WBC RBC Hgb Hct MCV MCH MCHC RDW Plt Count MPV Absolute Nucleated RBC Nucleated RBC % (auto) Smear Path Review SEE NOTE Cancelled Sodium Potassium Chloride Carbon Dioxide Anion Gap BUN Creatinine Estim Creat Clear Calc Estimated GFR POC Glucose Random Glucose Haptoglobin 191 Calcium Lactate Dehydrogenase 234 H U Random Total Protein Urine Creatinine Protein/Creatinin Ratio 02/02/24 02/02/24 02/02/24 10:59 16:12 21:58 WBC RBC Hgb Hct MCV MCH MCHC RDW Plt Count MPV Absolute Nucleated RBC Nucleated RBC % (auto) Smear Path Review Sodium Potassium Chloride Carbon Dioxide Anion Gap BUN Creatinine Estim Creat Clear Calc Estimated GFR POC Glucose 247 H 157 H 162 H Random Glucose Haptoglobin Calcium Lactate Dehydrogenase U Random Total Protein Urine Creatinine Protein/Creatinin Ratio 02/02/24 02/03/24 02/03/24 23:38 07:29 07:42 WBC 11.2 H RBC 2.69 L Hgb 8.1 L Hct 22.3 L MCV 82.9 MCH 30.1 MCHC 36.3 H RDW 13.4 Plt Count 124 L D MPV 10.2 Absolute Nucleated RBC 0.000 Nucleated RBC % (auto) 0.0 Smear Path Review Sodium 132 L Potassium 3.5 Chloride 107 Carbon Dioxide 17 L Anion Gap 12 BUN 28 H Creatinine 2.18 H Estim Creat Clear Calc 33.2 Estimated GFR 25 POC Glucose 166 H Random Glucose 185 H Haptoglobin Calcium 8.1 L Lactate Dehydrogenase U Random Total Protein 67 H Urine Creatinine 65.54 Protein/Creatinin Ratio 1.02 H Discharge Plan Discharge Anticipated Discharge Date/Time: 02/03/24 08:56 Patient Disposition: Home, Self-Care Discharge Diagnosis: Klebsiella pneumonia bacteremia Klebsiella pneumonia UTI Sepsis secondary to pyelonephritis MERLY Referrals: Rigoberto Kent MD [Primary Care Provider] - 1 Week Humaira Nguyen DNP, [employer]ER-BC [Nurse Practitioner] - 1 Week Discharge Medications: New cefuroxime axetil 250 mg tablet 250 mg PO BID Qty: 20 0RF Continued levothyroxine 175 mcg tablet 175 mcg PO DAILY@0630 ondansetron HCl 4 mg tablet 4 mg PO Q8H PRN (Reason: Nausea And Vomiting) colchicine 0.6 mg tablet 0.6 mg PO DAILY PRN (Reason: flare) levocetirizine 5 mg tablet 10 mg PO BID cholecalciferol (vitamin D3) [Vitamin D3] 125 mcg (5,000 unit) tablet 125 mcg PO DAILY Mounjaro 5 mg/0.5 mL pen injector 5 mg subcut MO Discontinued ibuprofen 800 mg tablet 800 mg PO BID Discharge Orders: Discharge Order (Routine); Ordered 02/03/24 Ordered By: Michell Gracia Diet: Advance to usual diet Activity on Discharge: As tolerated Stand Alone Forms: Patient Portal Discharge page, Work/School Release Print Language: Frisian Other Ambulatory Orders: Basic Metabolic Panel (Routine) Timeframe: 1 Week Facility: [facility] - Location: Laboratory Ordered By: Michell Gracia Care Plan Goals: Avoid taking NSAIDs including ibuprofen Health Concerns: Klebsiella pneumonia bacteremia Klebsiella pneumonia UTI Sepsis secondary to pyelonephritis MERLY Plan of Treatment: Follow-up with primary care provider as needed Take all medications as prescribed Assessment: See discharge summary
--- NOTE | 2024-02-03 09:16 | P.PNNP_ITS ---
Subjective Subjective Date of Service: 02/03/24 Interval history: 43 y/o female with a medical history of renal cell carcinoma w/p right nephrectomy in 2005, DMII, hypothyroidism, gastric sleeve 2022. Reports gallbladder removed earlier in 2023. Pt reports she does not see a kidney doctor. Presented 01/29 with 5 days of chills, aches, left flank pain, nausea, vomiting, cough, dyspnea. being treated for sepsis from pyelonephritis. Nephrology consulted for MERLY. baseline creatinine 1.1 01/29 creatinine 2.60, 01/30 was 2.40 01/31 was 2.05 02/01 is 2.29 02/02 is 2.18 of note, thrombocytopenia (improving), elevated LFTs (resolved) CT abdomen/pelvis 01/29 showed: s/p right nephrectomy, mild left perinephritic stranding without hydronephrosis/ureter, no calculi seen. Also showed splenomegaly and mild hepatomegaly. blood cultures +klebseilla, as well as urine culture patient reports she took ibuprofen 800mg every 8 hours for 5 days leading up to admission for abdominal pain and myalgias states she has this for migraines but usually does not take regularly also had poor PO intake, reports nausea and vomiting and was not eating/drinking much week prior to hospitalization she reports pain is mostly related to neck pain from lying in hospital bed and reports wants to go home. reports some continued left lower quadrant pain in her abdomen. she denies dyspnea she denies pain with urination, difficulty emptying bladder, states she has been urinating regularly/comfortably, UOP 1200mL over last 24 hours Physical Exam 2 Vital Signs: Vital Signs: Last Vital Signs Temp 98.5 F 02/03/24 07:43 Pulse 95 02/03/24 07:43 Resp 18 02/03/24 07:43 BP 107/67 02/03/24 07:43 Pulse Ox 95 02/03/24 07:43 O2 Del Method Room Air 02/03/24 07:43 BMI result Body Mass Index 29.5 Const: General: no acute distress, alert and awake Resp: Effort & Inspection: normal respiratory effort and able to speak in complete sentences Auscultation: clear to auscultation bilaterally Cardio: Palpation: normal PMI Rate: regular rate Rhythm: regular rhythm Heart sounds: S1 normal heart sound present and S2 normal heart sound present GI: Palpation (GI): Soft to palpation and Tenderness to palpation present (GI) (mild tenderness to LLQ palpation) in the LLQ : General: Yes no CVA tenderness Back/Spine/Pelvis: Back: no CVA tenderness Skin: Rashes: no rashes Extrem: General: No edema Objective Data Labs 02/03/24 07:29 02/03/24 07:29 Labs: Laboratory Results - last 24 hr 02/02/24 02/02/24 02/02/24 06:23 07:53 08:11 WBC RBC Hgb Hct MCV MCH MCHC RDW Plt Count MPV Absolute Nucleated RBC Nucleated RBC % (auto) Smear Path Review SEE NOTE Cancelled Sodium Potassium Chloride Carbon Dioxide Anion Gap BUN Creatinine Estim Creat Clear Calc Estimated GFR POC Glucose Random Glucose Haptoglobin 191 Calcium Lactate Dehydrogenase 234 H U Random Total Protein Urine Creatinine Protein/Creatinin Ratio 02/02/24 02/02/24 02/02/24 10:59 16:12 21:58 WBC RBC Hgb Hct MCV MCH MCHC RDW Plt Count MPV Absolute Nucleated RBC Nucleated RBC % (auto) Smear Path Review Sodium Potassium Chloride Carbon Dioxide Anion Gap BUN Creatinine Estim Creat Clear Calc Estimated GFR POC Glucose 247 H 157 H 162 H Random Glucose Haptoglobin Calcium Lactate Dehydrogenase U Random Total Protein Urine Creatinine Protein/Creatinin Ratio 02/02/24 02/03/24 02/03/24 23:38 07:29 07:42 WBC 11.2 H RBC 2.69 L Hgb 8.1 L Hct 22.3 L MCV 82.9 MCH 30.1 MCHC 36.3 H RDW 13.4 Plt Count 124 L D MPV 10.2 Absolute Nucleated RBC 0.000 Nucleated RBC % (auto) 0.0 Smear Path Review Sodium 132 L Potassium 3.5 Chloride 107 Carbon Dioxide 17 L Anion Gap 12 BUN 28 H Creatinine 2.18 H Estim Creat Clear Calc 33.2 Estimated GFR 25 POC Glucose 166 H Random Glucose 185 H Haptoglobin Calcium 8.1 L Lactate Dehydrogenase U Random Total Protein 67 H Urine Creatinine 65.54 Protein/Creatinin Ratio 1.02 H Microbiology Microbiology Results: Microbiology 01/30/24 17:39 Blood - Venous Blood Culture - Final Klebsiella pneumoniae 01/30/24 17:35 Blood - Venous Blood Culture - Final Klebsiella pneumoniae 01/30/24 17:30 Urine clean catch - Clean Catch Midstream Urine Culture - Final Klebsiella pneumoniae Procedures Date of Service Date of Service: 02/03/24 Assessment & Plan Assessment and plan (1) Acute kidney injury: Status: Acute (2) Pyelonephritis of left kidney: Status: Acute (3) History of right nephrectomy: Status: Acute (4) Thrombocytopenia: Status: Acute Plan MERLY most likely due to ATN due to hypoperfusion in setting of poor PO intake, vomiting and high-dose NSAID use Slow improvement, creatinine trending downward patient also has a thrombocytopenia, anemia- normal haptoglobin and schistocytes makes TTP/HUS unlikely thrombotic microangiopathy unlikely, she does have DMII, but no rash, no known vascular disease, has klebsiella in blood and urine makes less likely. has metabolic acidosis likely secondary to kidney injury, will follow up as outpatient urine protein/creatinine ratio is elevated above 1gm - needs follow up as outpatient recommend to avoid nephrotoxins will arrange follow up in the office in [address] Goodson Time Spent With Patient Time: Total time managing care of this patient today ____ minutes. Progress Note: Quality Stroke Does the patient have a stroke diagnosis?: No
--- NOTE | 2024-02-03 10:34 | MHC.CM.PN ---
Per MD rounds, patient medically cleared for dc home self care. Boyfriend at bedside to transport. RN aware. IMM delivered.
[2024-02-03] MEDS: ondansetron HCL 4 MG/2 ML VIAL IVPUSH (11:01)
== END 2024-02-03 11:14 | disposition home or self-care (01) | DRG 872 ==
LOC: HO.ED 21:44 → HO.EDOVER 22:54 → HO.S3 01-31 07:51
PROVIDERS: Nurse Practitioner Family; Admitting Provider Physician Assistant; Emergency Provider Emergency Medicine; PCP Family Medicine; Visit Provider Nurse Practitioner Acute Care
DX: A41.9 Sepsis, unspecified organism (principal); N17.9 Acute kidney failure, unspecified; N10 Acute pyelonephritis; B96.1 Klebsiella pneumoniae [K. pneumoniae] as the cause of diseases classified elsewhere; L50.8 Other urticaria; D69.59 Other secondary thrombocytopenia; D64.9 Anemia, unspecified; E03.9 Hypothyroidism, unspecified; Z20.822 Contact with and (suspected) exposure to COVID-19; Z90.5 Acquired absence of kidney; Z85.528 Personal history of other malignant neoplasm of kidney; Z98.84 Bariatric surgery status; Z79.890 Hormone replacement therapy; Z79.899 Other long term (current) drug therapy
CPT/HCPCS: 0241U; 36415; 71046; 74176; 76705; 80048; 80053; 80076; 81001; 81025; 82570; 82947; 83010; 83605; 83615; 83690; 84156; 85007; 85025; 85027; 87040; 87077; 87086; 87088; 87186; 87205; 93005; 99285; J0131; J0692; J1171; J2405; J2470; J7120

== ENCOUNTER → 2024-01-30 16:08 | Outpatient (BNV) | payer OTHER, SELFPAY | PROVIDERS: Admitting Provider Physician Assistant; Emergency Provider Emergency Medicine; PCP Family Medicine; Visit Provider Internal Medicine Cardiovascular Disease | DX: R00.0 Tachycardia, unspecified (principal) | CPT/HCPCS: 93010 ==

== ENCOUNTER 2024-01-30 22:38 | Outpatient (BNV) | payer OTHER, SELFPAY | END 2024-01-31 02:35 | PROVIDERS: Admitting Provider Physician Assistant; Emergency Provider Emergency Medicine; PCP Family Medicine; Visit Provider Internal Medicine Cardiovascular Disease | DX: R94.31 Abnormal electrocardiogram [ECG] [EKG] (principal) | CPT/HCPCS: 93010 ==

== ENCOUNTER → 2024-01-30 22:38 | Outpatient (BNV) | payer OTHER, SELFPAY | PROVIDERS: Admitting Provider Physician Assistant; Emergency Provider Emergency Medicine; PCP Family Medicine; Visit Provider Nurse Practitioner Family | DX: N17.9 Acute kidney failure, unspecified (principal); N12 Tubulo-interstitial nephritis, not specified as acute or chronic; Z90.5 Acquired absence of kidney; D69.6 Thrombocytopenia, unspecified | CPT/HCPCS: 99222; 99232 ==

== ENCOUNTER → 2024-01-30 22:38 | Outpatient (BNV) | payer OTHER, SELFPAY | PROVIDERS: Admitting Provider Physician Assistant; Emergency Provider Emergency Medicine; PCP Family Medicine; Visit Provider Nurse Practitioner Acute Care | DX: N17.9 Acute kidney failure, unspecified (principal); N12 Tubulo-interstitial nephritis, not specified as acute or chronic; Z90.5 Acquired absence of kidney | CPT/HCPCS: 99223; 99232; 99239 ==

== ENCOUNTER 2024-02-09 16:45 | Outpatient (REF) | payer OTHER, SELFPAY ==
[2024-02-09 17:41] LABS: Anion Gap 11 (12-20); Blood Urea Nitrogen 9 mg/dL (9-16); Calcium 8.4 mg/dL (8.4-10.2); Carbon Dioxide 26 mmol/L (22-29); Chloride 106 mmol/L (96-108); Estimated Glomerular Filt Rate 60; Glucose Random 147 mg/dL (60-115); Potassium 3.5 mmol/L (3.3-5.1); Sodium 139 mmol/L (135-145)
== END 2024-02-09 16:46 | disposition home or self-care (01) ==
LOC: HO.LAB 16:45
PROVIDERS: PCP Family Medicine; Referring Provider Family Medicine; Visit Provider Nurse Practitioner Acute Care
DX: N17.9 Acute kidney failure, unspecified (principal)
CPT/HCPCS: 36415; 80048

== ENCOUNTER 2024-02-10 14:33 | Outpatient (AMB) | payer OTHER, SELFPAY ==
--- NOTE | 2024-02-10 14:57 | HO.NEPHOV_ITS ---
Vital Signs 02/10/24 14:58 Height 5 ft 4 in Weight 172 lb 4 oz BMI 29.6 BP 110/70 Blood Pressure Location Lt brachial Position Sitting Intake Visit Reasons: [facility] MERLY, metabolic acidosis Hearing Aid Fitter Required: No Accompanied by: Self / Same As Patient Allergies erythromycin base [ERYTHROMYCIN BASE] Allergy (Unknown, Verified 02/10/24 14:58) HIVES metronidazole [From FLAGYL] Allergy (Unknown, Verified 02/10/24 14:58) ANAPHYLAXIS ofloxacin [From FLOXIN] Allergy (Unknown, Verified 02/10/24 14:58) ANAPHYLAXIS Penicillins [PENICILLINS] Allergy (Unknown, Verified 02/10/24 14:58) HIVES vancomycin [VANCOMYCIN] Allergy (Unknown, Verified 02/10/24 14:58) HIVES Iodinated Contrast Media [Contrast Dye] Allergy (Verified 02/10/24 14:58) Hives morphine Allergy (Verified 02/10/24 14:58) Vomiting HPI Comments Details: 43-year-old female with status post right nephrectomy for RCC who has acquired solitary kidney who has type 2 diabetes who recently presented to the ED with 5 days of chills, aches, left flank pain, nausea and vomiting. She was taking Jardiance at that time. She denied any dysuria, urinary frequency or urinary symptoms at presentation.She has been taking ibuprofen 800 mg for her flank pain. She was found to have sepsis secondary to pyelonephritis, Klebsiella pneumonia bacteremia and Klebsiella pneumonia UTI. Patient was treated with IV fluids and supportive care. Her baseline creatinine is 1.1 but had gone up to 2.60 which improved with time. She also was noted to have elevated LFTs which have improved. Her Jardiance and Mounjaro were held during hospitalization. She feels improved. Her serum creatinine has settled to baseline [facility] Medical History (Updated 02/10/24 @ 21:15 by Jairon Goodson MD) Bacteremia due to Klebsiella pneumoniae Renal cell carcinoma of right kidney Urticaria Hypothyroid Diabetes type 2, controlled Surgical History History of cholecystectomy H/O gastric sleeve H/O right nephrectomy Social History Household Members: Significant Other and Children Housing: House Do you presently have visiting nurse or other home services: No Patient Tobacco Use Status: Never used Tobacco service: No Review of Systems Const All systems reviewed & are unremarkable except as noted in HPI and below Physical Exam Vital Signs: Last Vital Signs BP 110/70 02/10/24 14:58 BMI result Body Mass Index 29.6 Const General: comfortable and no acute distress Orientation/consciousness: patient oriented x3 HEENT Head: Yes normocephalic Mouth: Normal oral and palatal mucosa present Eyes EOM: EOMs intact bilaterally Neck Neck: Yes supple Resp Auscultation: clear to auscultation bilaterally Cardio Jugular venous distension: no JVD Rate: regular rate GI Palpation (GI): Soft to palpation Auscultation: normal bowel sounds General: Yes no CVA tenderness Back/Spine/Pelvis Back: no CVA tenderness Skin General skin exam: no rashes or lesions noted Neuro General: patient oriented x3 and moves all extremities Extrem General: Yes no pedal edema Results Reviewed Nephrology Results: Hgb 8.1 g/dl (12.0-16.0) L 02/03/24 WBC 11.2 X10*3/uL (4.8-10.8) H 02/03/24 Plt Count 124 X10*3/uL (160-400) L 02/03/24 Sodium 139 mmol/L (135-145) 02/09/24 Potassium 3.5 mmol/L (3.3-5.1) 02/09/24 Chloride 106 mmol/L (96-108) 02/09/24 Carbon Dioxide 26 mmol/L (22-29) 02/09/24 BUN 9 mg/dL (9-16) 02/09/24 Creatinine 1.01 mg/dL (0.5-1.4) 02/09/24 Calcium 8.4 mg/dL (8.4-10.2) 02/09/24 Urine Protein 100 (2+) mg/dL (Neg-Trace) H 01/30/24 Urine Creatinine 65.54 mg/dL 02/02/24 Protein/Creatinin Ratio 1.02 (<0.2) H 02/02/24 Assessment & Plan Assessment & Plan (1) History of right nephrectomy: Code(s): Z90.5 - Acquired absence of kidney Category: Surgical (2) Proteinuria: Code(s): R80.9 - Proteinuria, unspecified Category: Medical Qualifiers: Proteinuria type: unspecified Qualified Code(s): R80.9 - Proteinuria, unspecified Plan Shari had acquired solitary kidney following nephrectomy for RCC. She developed MERLY secondary to sepsis. Her Jardiance was put on hold at that time. Whether she had coincidence of pyelonephritis while taking Jardiance or taking Jardiance was the trigger for sepsis , is unsure. She is at risk for hyperfiltration. She may be having diabetic nephropathy as well. She may need a renal biopsy. I ordered 24 hour urine for protein. She will be a great candidate for ACEI/ARB @ next visit based on evolving data. She needs to avoid NSAID's and keep up with good hydration. Follow up given Orders: Orders Protein, 24 Hr Urine Group 3 Months R80.9 - Proteinuria, unspecified, Z90.5 - Acquired absence of kidney Electrolytes 3 Months R80.9 - Proteinuria, unspecified, Z90.5 - Acquired absence of kidney Blood Urea Nitrogen 3 Months R80.9 - Proteinuria, unspecified, Z90.5 - Acquired absence of kidney Creatinine 3 Months R80.9 - Proteinuria, unspecified, Z90.5 - Acquired absence of kidney Coding Level of Care Code Est Pt Level 4 (38969) Diagnoses History of right nephrectomy Z90.5 Proteinuria, unspecified type R80.9 Proteinuria type: unspecified
[2024-02-10 14:58] VITALS: BP 110/70; BMI 29.6
== END 2024-02-10 15:29 | disposition home or self-care (01) ==
PROVIDERS: PCP Family Medicine; Visit Provider Internal Medicine Nephrology
DX: R80.9 Proteinuria, unspecified (principal); Z90.5 Acquired absence of kidney
CPT/HCPCS: 99214

== ENCOUNTER → 2024-02-10 14:33 | Outpatient (BNVA) | payer OTHER, SELFPAY | PROVIDERS: PCP Family Medicine; Visit Provider Internal Medicine Nephrology | DX: R80.9 Proteinuria, unspecified (principal); Z90.5 Acquired absence of kidney | CPT/HCPCS: 99212 ==

== ENCOUNTER 2024-02-26 15:30 | Outpatient (AMB) | payer OTHER, SELFPAY ==
[2024-02-26 15:33] VITALS: BP 108/80; BMI 27.6
--- NOTE | 2024-02-26 15:33 | HO.NEPHOV ---
Vital Signs 02/26/24 15:33 Height 5 ft 4 in Weight 161 lb BMI 27.6 BP 108/80 Blood Pressure Location Lt brachial Position Sitting Intake Visit Reasons: Left Kidney Pain Project Management Specialist Required: No Accompanied by: Self / Same As Patient Allergies erythromycin base [ERYTHROMYCIN BASE] Allergy (Unknown, Verified 02/26/24 15:35) HIVES metronidazole [From FLAGYL] Allergy (Unknown, Verified 02/26/24 15:35) ANAPHYLAXIS ofloxacin [From FLOXIN] Allergy (Unknown, Verified 02/26/24 15:35) ANAPHYLAXIS Penicillins [PENICILLINS] Allergy (Unknown, Verified 02/26/24 15:35) HIVES vancomycin [VANCOMYCIN] Allergy (Unknown, Verified 02/26/24 15:35) HIVES Iodinated Contrast Media [Contrast Dye] Allergy (Verified 02/26/24 15:35) Hives morphine Allergy (Verified 02/26/24 15:35) Vomiting HPI Comments Details: 43-year-old female with status post right nephrectomy for RCC who has acquired solitary kidney with type 2 diabetes who recently presented to [facility] with 5 days of chills, aches, left flank pain, nausea and vomiting. She was not taking Jardiance at that time. She denied any dysuria, urinary frequency or urinary symptoms at presentation.She has been taking ibuprofen 800 mg for her flank pain during that time. She was found to have sepsis secondary to pyelonephritis, Klebsiella pneumonia bacteremia and Klebsiella pneumonia UTI. Patient was treated with IV fluids and supportive care. Her baseline creatinine is 1.1 but had gone up to 2.60 which improved with time. She presented to office as an urgent visit complaining left kidney pain. She feels very fatigued and her urine has been cloudy without dysuria, frequency, hematuria, chills, rigor, nausea or vomiting. [facility] Medical History (Updated 02/29/24 @ 06:41 by Jairon Goodson MD) Thrombocytopenia Elevated LFTs Bacteremia due to Klebsiella pneumoniae Renal cell carcinoma of right kidney Urticaria Hypothyroid Diabetes type 2, controlled Surgical History History of right nephrectomy History of cholecystectomy H/O gastric sleeve H/O right nephrectomy Social History Household Members: Significant Other and Children Housing: House Do you presently have visiting nurse or other home services: No Patient Tobacco Use Status: Never used Tobacco service: No Review of Systems Const All systems reviewed & are unremarkable except as noted in HPI and below Physical Exam Vital Signs: Last Vital Signs BP 108/80 02/26/24 15:33 BMI result Body Mass Index 27.6 Const General: comfortable and no acute distress Orientation/consciousness: patient oriented x3 HEENT Head: Yes normocephalic Mouth: Normal oral and palatal mucosa present Eyes EOM: EOMs intact bilaterally Neck Neck: Yes supple Resp Auscultation: clear to auscultation bilaterally Cardio Jugular venous distension: no JVD Rate: regular rate GI Palpation (GI): Soft to palpation Auscultation: normal bowel sounds General: Yes no CVA tenderness Back/Spine/Pelvis Back: no CVA tenderness Skin General skin exam: no rashes or lesions noted Neuro General: patient oriented x3 and moves all extremities Extrem General: Yes no pedal edema Results Reviewed Nephrology Results: Sodium 138 mmol/L (135-145) 02/26/24 Potassium 3.9 mmol/L (3.3-5.1) 02/26/24 Chloride 106 mmol/L (96-108) 02/26/24 Carbon Dioxide 25 mmol/L (22-29) 02/26/24 BUN 11 mg/dL (9-16) 02/26/24 Creatinine 1.01 mg/dL (0.5-1.4) 02/26/24 Assessment & Plan Assessment & Plan (1) Dysuria: Code(s): R30.0 - Dysuria Category: Medical (2) Proteinuria: Code(s): R80.9 - Proteinuria, unspecified Category: Medical Qualifiers: Proteinuria type: unspecified Qualified Code(s): R80.9 - Proteinuria, unspecified (3) Acquired solitary kidney: Code(s): Z90.5 - Acquired absence of kidney Category: Medical Plan Shari had acquired solitary kidney following nephrectomy for RCC. She recently developed MERLY secondary to sepsis which has been resolved. Sheis not on Jardiance now. I asked her to get blood work and urine culture done today. She is at risk for hyperfiltration. She may be having diabetic nephropathy as well. She may need a renal biopsy. I ordered 24 hour urine for protein prior to next visit. She will be a great candidate for ACEI/ARB & Jardiance @ next visit based on evolving data. She needs to avoid NSAID's and keep up with good hydration. Follow up given Orders: Orders Urine Culture 02/26/24 R30.0 - Dysuria Creatinine 02/26/24 R30.0 - Dysuria, R80.9 - Proteinuria, unspecified Blood Urea Nitrogen 02/26/24 R30.0 - Dysuria, R80.9 - Proteinuria, unspecified Electrolytes 02/26/24 R30.0 - Dysuria, R80.9 - Proteinuria, unspecified Coding Level of Care Code Est Pt Level 4 (42501) Diagnoses Dysuria R30.0 Proteinuria, unspecified type R80.9 Proteinuria type: unspecified Acquired solitary kidney Z90.5
== END 2024-02-26 16:32 | disposition home or self-care (01) ==
PROVIDERS: PCP Family Medicine; Visit Provider Internal Medicine Nephrology
DX: R30.0 Dysuria (principal); R80.9 Proteinuria, unspecified; Z90.5 Acquired absence of kidney
CPT/HCPCS: 99214

== ENCOUNTER 2024-02-26 15:30 | Outpatient (REF) | payer OTHER, SELFPAY ==
[2024-02-26 17:08] LABS: Anion Gap 11 (12-20); Blood Urea Nitrogen 11 mg/dL (9-16); Carbon Dioxide 25 mmol/L (22-29); Chloride 106 mmol/L (96-108); Estimated Glomerular Filt Rate 60; Potassium 3.9 mmol/L (3.3-5.1); Sodium 138 mmol/L (135-145)
== END 2024-02-26 15:31 | disposition home or self-care (01) ==
LOC: HO.LAB 15:30
PROVIDERS: PCP Family Medicine; Visit Provider Internal Medicine Nephrology
DX: R30.0 Dysuria (principal); R80.9 Proteinuria, unspecified; Z90.5 Acquired absence of kidney
CPT/HCPCS: 36415; 80051; 82565; 84520; 87086; 87088; 87186; 99212

== ENCOUNTER 2024-03-21 09:35 | Outpatient (REF) | payer OTHER, SELFPAY ==
[2024-03-21 11:13] LABS: Anion Gap 12 (12-20); Blood Urea Nitrogen 10 mg/dL (9-16); Carbon Dioxide 24 mmol/L (22-29); Chloride 109 mmol/L (96-108); Estimated Glomerular Filt Rate > 60; Potassium 4.1 mmol/L (3.3-5.1); Sodium 141 mmol/L (135-145)
== END 2024-03-21 09:36 | disposition home or self-care (01) ==
LOC: HO.LAB 09:35
PROVIDERS: PCP Family Medicine; Visit Provider Internal Medicine Nephrology
DX: R30.0 Dysuria (principal)
CPT/HCPCS: 36415; 80051; 82565; 84520; 87086; 87088; 87186

== ENCOUNTER 2024-04-19 16:46 | Outpatient (REF) | payer OTHER, SELFPAY ==
[2024-04-19 17:32] LABS: Anion Gap 13 (12-20); Blood Urea Nitrogen 18 mg/dL (9-16); Carbon Dioxide 23 mmol/L (22-29); Chloride 107 mmol/L (96-108); Estimated Glomerular Filt Rate 48; Potassium 4.4 mmol/L (3.3-5.1); Sodium 139 mmol/L (135-145)
== END 2024-04-19 16:47 | disposition home or self-care (01) ==
LOC: HO.LAB 16:46
PROVIDERS: PCP Family Medicine; Visit Provider Internal Medicine Nephrology
DX: R30.0 Dysuria (principal)
CPT/HCPCS: 36415; 80051; 82565; 84520; 87086

== ENCOUNTER 2024-05-25 09:48 | Outpatient (REF) | payer OTHER, SELFPAY ==
[2024-05-25 11:47] LABS: Anion Gap 10 (12-20); Blood Urea Nitrogen 14 mg/dL (9-16); Carbon Dioxide 24 mmol/L (22-29); Chloride 109 mmol/L (96-108); Estimated Glomerular Filt Rate > 60; Potassium 4.1 mmol/L (3.3-5.1); Sodium 139 mmol/L (135-145)
== END 2024-05-25 09:49 | disposition home or self-care (01) ==
LOC: HO.LAB 09:48
PROVIDERS: PCP Family Medicine; Visit Provider Internal Medicine Nephrology
DX: Z90.5 Acquired absence of kidney (principal); R80.9 Proteinuria, unspecified
CPT/HCPCS: 36415; 80051; 82565; 84520

== ENCOUNTER 2024-07-26 09:48 | Outpatient (AMB) | payer OTHER, SELFPAY ==
[2024-07-26 09:52] VITALS: BP 84/62; PULSE 83; O2SAT 100; BMI 29.0
--- NOTE | 2024-07-26 09:52 | HO.NEPHOV_ITS ---
Vital Signs 07/26/24 09:52 Height 5 ft 4 in Weight 169 lb BMI 29.0 BP 84/62 L Blood Pressure Location Lt brachial Position Sitting Pulse 83 Pulse Source Pulse Oximeter Pulse Oximetry (%) 100 Oxygen Delivery Method Room Air Intake Visit Reasons: F/U-Conf Manufacturing Scheduler Required: No Accompanied by: Self / Same As Patient Allergies erythromycin base [ERYTHROMYCIN BASE] Allergy (Unknown, Verified 07/26/24 09:54) HIVES metronidazole [From FLAGYL] Allergy (Unknown, Verified 07/26/24 09:54) ANAPHYLAXIS ofloxacin [From FLOXIN] Allergy (Unknown, Verified 07/26/24 09:54) ANAPHYLAXIS Penicillins [PENICILLINS] Allergy (Unknown, Verified 07/26/24 09:54) HIVES vancomycin [VANCOMYCIN] Allergy (Unknown, Verified 07/26/24 09:54) HIVES Iodinated Contrast Media [Contrast Dye] Allergy (Verified 07/26/24 09:54) Hives morphine Allergy (Verified 07/26/24 09:54) Vomiting HPI Comments Details: 43-year-old female with status post right nephrectomy for RCC who has acquired solitary kidney with type 2 diabetes who follows up with June Rivera presents here for F/U. She is not taking Jardiance at that time. She denied any dysuria, urinary frequency or urinary symptoms at presentation. She has H/O sepsis secondary to pyelonephritis, Klebsiella pneumonia bacteremia and Klebsiella pneumonia UTI. Her baseline creatinine is 1.1 but had gone up to 2.60 which improved with time. She is due to haev MRI of her kidney [facility] Medical History (Updated 02/29/24 @ 06:41 by Jairon Goodson MD) Thrombocytopenia Elevated LFTs Bacteremia due to Klebsiella pneumoniae Renal cell carcinoma of right kidney Urticaria Hypothyroid Diabetes type 2, controlled Surgical History History of right nephrectomy History of cholecystectomy H/O gastric sleeve H/O right nephrectomy Social History Household Members: Significant Other and Children Housing: House Do you presently have visiting nurse or other home services: No Patient Tobacco Use Status: Never used Tobacco service: No Review of Systems Const All systems reviewed & are unremarkable except as noted in HPI and below Physical Exam Vital Signs: Last Vital Signs Pulse 83 07/26/24 09:52 BP 84/62 L 07/26/24 09:52 Pulse Ox 100 07/26/24 09:52 Oxygen Delivery Method Room Air 07/26/24 09:52 BMI result Body Mass Index 29.0 Const General: comfortable and no acute distress Orientation/consciousness: patient oriented x3 HEENT Head: Yes normocephalic Mouth: Normal oral and palatal mucosa present Eyes EOM: EOMs intact bilaterally Neck Neck: Yes supple Resp Auscultation: clear to auscultation bilaterally Cardio Jugular venous distension: no JVD Rate: regular rate GI Palpation (GI): Soft to palpation Auscultation: normal bowel sounds General: Yes no CVA tenderness Back/Spine/Pelvis Back: no CVA tenderness Skin General skin exam: no rashes or lesions noted Neuro General: patient oriented x3 and moves all extremities Extrem General: Yes no pedal edema Results Reviewed Nephrology Results: Hgb 8.1 g/dl (12.0-16.0) L 02/03/24 WBC 11.2 X10*3/uL (4.8-10.8) H 02/03/24 Plt Count 124 X10*3/uL (160-400) L 02/03/24 Sodium 139 mmol/L (135-145) 05/25/24 Potassium 4.1 mmol/L (3.3-5.1) 05/25/24 Chloride 109 mmol/L (96-108) H 05/25/24 Carbon Dioxide 24 mmol/L (22-29) 05/25/24 BUN 14 mg/dL (9-16) 05/25/24 Creatinine 1.00 mg/dL (0.5-1.4) 05/25/24 Calcium 8.4 mg/dL (8.4-10.2) 02/09/24 Urine Protein 100 (2+) mg/dL (Neg-Trace) H 01/30/24 Urine Creatinine 65.54 mg/dL 02/02/24 Protein/Creatinin Ratio 1.02 (<0.2) H 02/02/24 Assessment & Plan Assessment & Plan (1) Acquired solitary kidney: Code(s): Z90.5 - Acquired absence of kidney Category: Medical (2) Proteinuria: Code(s): R80.9 - Proteinuria, unspecified Category: Medical Qualifiers: Proteinuria type: unspecified Qualified Code(s): R80.9 - Proteinuria, unspecified Plan Shari had acquired solitary kidney following nephrectomy for RCC. She is not on Jardiance now which I plan to initiate at a lower dose at a later time. I asked her to get blood work and urine studies. She is at risk for hyperfiltration. She may be having diabetic nephropathy as well. She may need a renal biopsy. I ordered 24 hour urine for protein prior to next visit. She will be a great candidate for ACEI/ARB & Jardiance @ next visit based on evolving data. She needs to avoid NSAID's and keep up with good hydration. Follow up given Orders: Orders Creatinine 6 Months R80.9 - Proteinuria, unspecified, Z90.5 - Acquired absence of kidney Calcium 6 Months R80.9 - Proteinuria, unspecified, Z90.5 - Acquired absence of kidney Protein, 24 Hr Urine Group 6 Months R80.9 - Proteinuria, unspecified, Z90.5 - Acquired absence of kidney Blood Urea Nitrogen 6 Months R80.9 - Proteinuria, unspecified, Z90.5 - Acquired absence of kidney Electrolytes 6 Months R80.9 - Proteinuria, unspecified, Z90.5 - Acquired absence of kidney Referrals Urology Referral Z90.5 - Acquired absence of kidney Coding Level of Care Code Est Pt Level 4 (78600) Diagnoses Acquired solitary kidney Z90.5 Proteinuria, unspecified type R80.9 Proteinuria type: unspecified
== END 2024-07-26 10:37 | disposition home or self-care (01) ==
LOC: HO.HKAS 09:49
PROVIDERS: PCP Family Medicine; Visit Provider Internal Medicine Nephrology
DX: Z90.5 Acquired absence of kidney (principal); R80.9 Proteinuria, unspecified
CPT/HCPCS: 99214

== ENCOUNTER → 2024-07-26 09:48 | Outpatient (BNVA) | payer OTHER, SELFPAY | PROVIDERS: PCP Family Medicine; Visit Provider Internal Medicine Nephrology | DX: R80.9 Proteinuria, unspecified (principal); Z90.5 Acquired absence of kidney | CPT/HCPCS: 99212 ==